=== PATIENT | male | born 1960 | race Caucasian/White ===

== ENCOUNTER 2022-06-12 22:07 | Emergency (ER) | payer SELFPAY ==
[2022-06-12] MEDS ORDERED: LIDOCAINE 1% MPF 30 ML VIAL ONE (23:01)
[2022-06-12] MEDS ORDERED: CEPHALEXIN 250 MG CAP ONE (23:32)
[2022-06-12] MEDS ORDERED: MORPHINE 4 MG/ML SYR ONE (23:32)
[2022-06-12] MEDS ORDERED: IBUPROFEN 400 MG TAB ONE (23:32)
[2022-06-12] MEDS ORDERED: ONDANSETRON 4 MG (ODT) TAB ONE (23:33)
[2022-06-12] MEDS ORDERED: TETANUS & DIPHTHERIA TOX,ADULT 0.5 ML VIAL ONE (23:33)
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
[2022-06-13 00:33] VITALS: TEMP 97.5
[2022-06-13 00:35] VITALS: BP 167/95; O2SAT 94
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
== END 2022-06-13 | disposition home or self-care (01) ==
LOC: ER 22:07
PROC: 0HQFXZZ Repair Right Hand Skin, External Approach (ICD-10-PCS; principal; 2022-06-13)
DX: S61.411A Laceration without foreign body of right hand, initial encounter (principal); W32.0XXA Accidental handgun discharge, initial encounter; Z23 Encounter for immunization
CPT/HCPCS: 90471; 90714; 96372; 99284; J2001; Q0162

== ENCOUNTER 2024-05-31 10:07 | Observation (INO) | payer SELFPAY ==
--- OUTSIDE RECORDS SUMMARY | 2024-05-31 10:14 | XMS REPORT | Continuity of Care Document ---
Author Name Unknown Address [address] [facility] [place] [address] [facility] [place] Address [address] [facility] [place] [address] Care Team Providers Care Senior Occupational Therapist Name Role Phone PCP, PATIENT DOES NOT HAVE A Primary Care Physic boom Unavailable KATHRINE SERNA Attending Clinician Unavailable KATHRINE SERNA Attending Clinician Unavailable MATT SANDERS Attending Clinician Unavailable MATT SANDERS Attending Clinician Unavailable KRISTOPHER HOROWITZ Attending Clinician Unavailable KRISTOPHER HOROWITZ Attending Clinician Unavailable Doctor Unassigned, Estelline Attending Clinician U navailable Pcp, Patient Does Not Have A Attending Clinician Juani Finn LVN Attending Clinician [phone] Deanna Palmer MD Attending Clinician [phone] Juventino King MD Attending Clinician [phone] Anesthesiology Attending Clinician Unavailable KATHRINE SERNA Admitting Clinician Unavailable Payers Payer Name Policy Type Policy Number Effective Date Expirati on Date Source OTHER CI [id number] Problems Condition Name Condition Details Condition Category Status Onset Date Resolution Date Last Treatment Date Treating Clinician Comments Source Closed wedge compressio n fracture of T9 vertebra with routine healing Closed wedge compressio n fracture of T9 vertebra with routine healing Disease Active 07-23 00:00: 00 [facility] Status post thoracic spinal fusion Status post thoracic spinal fusion Disease Active 07-23 00:00: 00 [facility] Chronic alcoholic liver disease Chronic alcoholic liver disease Disease Recurre nce 07-23 00:00: 00 [facility] Trauma Trauma Disease Active 6- 00:00: 00 [facility] Allergies, Adverse Reactions, Alerts Allergy Name Allergy Type Status Severity Reaction(s) Onset Date Inactive Date Treating Clinician Comments Source EGG DRUG INGREDI Active Diarrhea 07-25 00:00: 00 [facility] Egg Propensi ty to adverse reaction s Active Nausea and/or Vomiting 07-25 00:00: 00 [facility] NO KNOWN ALLERGIE S Drug Class Active [facility] Social History Social Habit Start Date Stop Date Quantity Comments Source History SDOH Social Connections Get Together [facility] History SDOH Social Connections [facility] History SDOH Social Connections Membership [facility] History SDOH Social Connections Meetings [facility] Gender identity [facility] History of tobacco use Cigarette Smoker [facility] Alcohol intake 2022-09-08 00:00:00 2022-09-08 00:00:00 Ex-drinker (finding) [facility] Tobacco use and exposure 2022-08-26 00:00:00 2022-08-26 00:00:00 Smokeless tobacco non-user [facility] History SDOH Alcohol Binge 2022-07-18 00:00:00 2022-07-18 00:00:00 5 [facility] History SDOH Social Connections Phone 2022-07-18 00:00:00 2022-07-18 00:00:00 2 [facility] History SDOH Social Connections Living 2022-07-18 00:00:00 2022-07-18 00:00:00 3 [facility] History SDOH Physical Activity DPW 2022-07-18 00:00:00 2022-07-18 00:00:00 0 [facility] History SDOH Physical Activity MPS 2022-07-18 00:00:00 2022-07-18 00:00:00 0 [facility] History SDOH Financial 2022-07-18 00:00:00 2022-07-18 00:00:00 3 [facility] History SDOH Food Worry 2022-07-18 00:00:00 2022-07-18 00:00:00 2 [facility] History SDOH Food Scarcity 2022-07-18 00:00:00 2022-07-18 00:00:00 2 [facility] History SDOH Transport Med 2022-07-18 00:00:00 2022-07-18 00:00:00 2 [facility] History SDOH Transport Non-Med 2022-07-18 00:00:00 2022-07-18 00:00:00 2 [facility] History SDOH Housing Unable to Pay 2022-07-18 00:00:00 2022-07-18 00:00:00 1 [facility] History SDOH Housing Places Lived 2022-07-18 00:00:00 2022-07-18 00:00:00 1 [facility] History SDOH Housing Homeless Last Year 2022-07-18 00:00:00 2022-07-18 00:00:00 2 [facility] History of Social function 2022-07-18 00:00:00 2022-07-18 00:00:00 [facility] History SDOH Alcohol Frequency 2022-07-18 00:00:00 2022-07-18 00:00:00 5 [facility] History SDOH Alcohol Std Drinks 2022-07-18 00:00:00 2022-07-18 00:00:00 5 [facility] Sex Assigned At 1960 00:00:00 1960 00:00:00 [facility] Smoking Status Start Date Stop Date Source Tobacco smoking consumption unknown [facility] Smokes tobacco daily 2022-08-26 00:00:00 [facility] Medications Ordered Medication Name Filled Medication Name Start Date Stop Date Current Medication? Ordering Clinician Indication Dosage Frequency Signature (SIG) Comments Components Source aspirin 81 mg chewable tablet 09-08 00:00: 00 Yes [id number] 81mg Take 1 tablet by mouth in the morning. [facility] metoprolol tartrate 25 mg tablet 09-08 00:00: 00 Yes [id number] 12.5mg Take 0.5 tablets by mouth in the morning and 0.5 tablets in the evening. [facility] hydrOXYzine 50 mg capsule 08-18 00:00: 00 Yes TAKE TWO CAPSULES BY MOUTH EVERY 6 HOURS NEEDED FOR ANXIETY [facility] bromphenira mine-pseudo ephedrine-D M 2-30-10 mg/5 mL syrup 08-18 00:00: 00 Yes TAKE 10 ML BY MOUTH EVERY 4 HOURS NEEDED FOR COUGH [facility] methocarbam oL 500 mg tablet 08-18 00:00: 00 Yes TAKE TWO TABLETS BY MOUTH EVERY 6 HOURS NEEDED FOR PAIN [facility] amLODIPine 10 mg tablet 08-09 00:00: 00 Yes [id number] 10mg Take 1 tablet by mouth in the morning. [facility] lisinopriL 10 mg tablet 08-09 00:00: 00 Yes [id number] 10mg Take 1 tablet by mouth in the morning. [facility] metoprolol tartrate 50 mg tablet 08-09 00:00: 00 09-08 00:00 :00 No [id number] 50mg Take 1 tablet by mouth in the morning and 1 tablet in the evening. [facility] amiodarone 200 mg tablet 08-09 00:00: 00 09-08 00:00 :00 No [id number] 400mg Take 2 tablets by mouth in the morning and 2 tablets in the evening. [facility] thiamine (VITAMIN B1) injection 250 mg 08-04 14:00: 00 08-09 13:59 :00 No 250mg 250 mg, Intramuscu lar, DAILY, 5 doses, First dose on Mon08/04/22 at 0900, Last dose on Mon08/08/22 at 0900, Routine [facility] thiamine 100 mg tablet 08-04 00:00: 00 08-10 04:59 :00 No [id number] 250mg Take 2.5 tablets in the morning for 5 doses. [facility] amiodarone 400 mg tablet 08-03 00:00: 00 08-25 04:59 :00 No [id number] 400mg Take 1 tablet by mouth in the morning for 21 doses. [facility] amLODIPine 10 mg tablet 07-31 00:00: 00 08-31 04:59 :00 No [id number] 10mg Take 1 tablet by mouth in the morning for 30 days. [facility] lisinopriL 10 mg tablet 07-31 00:00: 00 08-31 04:59 :00 No [id number] 10mg Take 1 tablet by mouth in the morning for 30 days. [facility] FENTanyl PF (SUBLIMAZE (PF)) injection 25 mcg 07-30 08:30: 00 07-30 07:39 :00 No 25ug 25 mcg, Slow IV Push, ONCE, 1 dose, On 07/30/22 at 0330, Routine [facility] metoprolol tartrate 50 mg tablet 07-30 00:00: 08-30 04:59 :00 No [id number] 50mg Take 1 tablet by mouth in the morning and 1 tablet in the evening. Do all this for 30 days. [facility] amiodarone 200 mg tablet 07-30 00:00: 00 08-25 04:59 :00 No [id number] 400mg Take 2 tablets by mouth in the morning and 2 tablets in the evening. Do all this for 4 days. Then Take 2 tablets by mouth in the morning for the next 21 days [facility] docusate 100 mg capsule 07-30 00:00: 00 08-14 04:59 :00 No [id number] 100mg Take 1 capsule by mouth in the morning for 14 days. Indication s: opiate pain medication causing severe constipati on [facility] methocarbam oL 500 mg tablet 07-30 00:00: 00 08-14 04:59 :00 No [id number] 500mg Take 1 tablet by mouth 4 (four) times daily for 14 days. Indication s: a uncontroll ed muscle contractio n with pain [facility] thiamine 100 mg tablet 07-30 00:00: 00 08-09 04:59 :00 No [id number] 500mg Take 5 tablets in the morning and 5 tablets at noon and 5 tablets in the evening. Do all this for 4 days. Then take 2.5 tablets in the morning for 5 days. [facility] HYDROcodone -acetaminop hen 5-325 mg tablet 07-30 00:00: 00 08-07 04:59 :00 No [id number] 1{tbl} Take 1 tablet by mouth every 4 (four) hours as needed for Pain (scale 4-6) or Pain (scale 7-10) for up to 7 days. Indication s: acute pain [facility] thiamine (VITAMIN B1) injection 500 mg 07-29 19:00: 00 08-03 18:59 :00 No 500mg 500 mg, Intramuscu lar, TID, 15 doses, First dose on Mon07/29/22 at 1400, Last dose on Mon08/03/22 at 0800, Routine [facility] calcium gluconate 2 g in NaCl 100 mL (ISO-OSM) RTU IV infusion 2 g 07-29 11:30: 00 07-29 11:20 :00 No 2g 2 g, IV Infusion, at 200 mL/hr Administer over 30 Minutes, ONCE, 1 dose, On Mon07/29/22 at 0630, Routine [facility] magnesium sulfate in water 2 gram/50 mL (4 %) infusion 2 g 07-29 11:30: 00 07-29 11:50 :00 No 2g 2 g, IV Piggyback, Administer over 60 Minutes, ONCE, 1 dose, On Mon07/29/22 at 0630, Routine [facility] KCL (KLOR-CON M20) tablet 40 mEq 07-29 11:30: 00 07-29 10:49 :00 No 40meq 40 mEq, Oral, ONCE, 1 dose, On Mon07/29/22 at 0630, Routine [facility] ipratropium -albuteroL (DUONEB) 0.5 mg-3 mg(2.5 mg base)/3 mL nebulizer solution 3 mL 07-28 20:30: 00 Yes 3mL 3 mL, Inhalation , Q6HPRN, Starting on Mon07/28/22 at 1530, Until Discontinu ed, Routine, Wheezing [facility] NaCl 0.9% (NS) injection 5 mL 07-28 14:23: 07 Yes 5mL 5 mL, Slow IV Push, PRN - SEE INSTRUCTIO NS, Starting on Mon07/28/22 at 0923, Until Discontinu ed, 10 mL [facility] lisinopriL (PRINIVIL,Z ESTRIL) tablet 10 mg 07-28 14:00: 00 Yes 10mg 10 mg, Oral, DAILY, First dose on Mon07/28/22 at 0900, Until Discontinu ed, Routine [facility] amiodarone (PACERONE) tablet 400 mg 07-28 01:00: 00 08-04 00:59 :00 No 400mg [Order 1 Start] Name: amiodarone (PACERONE) tablet 400 mg Signed Summary: 400 mg, Oral, BID, 14 doses, First dose on Mon07/27/22 at 2000, Last dose on Mon08/03/22 at 0800, Routine [Order 1 End] [Order 2 Start] Name: amiodarone (PACERONE) tablet 400 mg Signed Summary: 400 mg, Oral, DAILY, 21 doses, First dose on Mon08/03/22 at 1999, Last dose on Mon08/23/22 at 0900, Routine [Order 2 End] [facility] barium sulfate-NO CHARGE- (VARIBAR PUDDING) 40 % (w/v), 30% (w/w) oral paste 30 mL 07-27 16:45: 00 07-27 17:00 :00 No [id number] 30mL 30 mL, Oral, ONCE, 1 dose, On Mon07/27/22 at 1200, Routine [facility] barium sulfate-NO CHARGE- (VARIBAR NECTOR) 40 % (w/v) oral suspension 30 mL 07-27 16:45: 00 07-27 16:45 :00 No [id number] 30mL 30 mL, Oral, ONCE, 1 dose, On Mon07/27/22 at 1200, Routine [facility] barium sulfate (VARIBAR THIN LIQUID) 81 % (w/w) oral powder 30 g 07-27 16:45: 00 07-27 16:45 :00 No [id number] 30g 30 g, Oral, ONCE, 1 dose, On Mon07/27/22 at 1200, Routine [facility] iohexol-NO CHARGE- (OMNIPAQUE 350 BULK) 25 mL 07-27 15:25: 00 07-27 15:25 :00 No [id number] 25mL 25 mL, Oral, ONCE, 1 dose, On Mon07/27/22 at 1045, Routine [facility] iopamidol (ISOVUE 370-500 mL) injection 80 mL 07-27 15:25: 00 07-27 15:25 :00 No [id number] 80mL 80 mL, Intravenou s, ONCE, 1 dose, On Mon07/27/22 at 1045, Routine [facility] KCL (KLOR-CON M20) tablet 20 mEq 07-27 14:00: 00 07-30 13:59 :00 No 20meq 20 mEq, Oral, DAILY, 3 doses, First dose on Mon07/27/22 at 0900, Last dose on Mon07/29/22 at 0900, Routine [facility] acetaminoph en (TYLENOL) tablet 650 mg 07-27 11:19: 22 Yes 650mg 650 mg, Oral, Q4HPRN, Starting on Mon07/27/22 at 0619, Until Discontinu ed, Routine, Temp > 38 C [facility] metoprolol tartrate (LOPRESSOR) tablet 50 mg 07-27 01:00: 00 Yes 50mg 50 mg, Oral, BID, First dose (after last modificati on) on Mon07/26/22 at 2000, Until Discontinu ed, Routine [facility] amiodarone 150 mg/100 mL (NEXTERONE) RTU infusion 150 mg 07-27 00:15: 00 07-27 01:23 :00 No 150mg 150 mg, IV Piggyback, ONCE, 1 dose, On Mon07/26/22 at 1915, Administer over 10 Minutes, 100 mL [facility] famotidine (PEPCID AC) tablet 20 mg 07-26 16:30: 00 Yes 20mg 20 mg, Oral, BID, First dose on Mon07/26/22 at 1130, Until Discontinu ed, Routine [facility] potassium chloride 40 mEq in 100 mL IVPB 07-26 11:15: 00 07-26 15:10 :00 No 40meq 40 mEq, Intravenou s, ONCE, 1 dose, On Mon07/26/22 at 0615, 100 mL [facility] diphenhydrA MINE-maalox 1:1 suspension (COMPOUNDED ) 07-26 08:45: 00 Yes 5mL 5 mL, Oral, PRN, Starting on Mon07/26/22 at 0345, Until Discontinu ed, Routine, Indigestio n [facility] lactulose (CEPHULAC) solution 30 mL 07-26 07:30: 00 07-26 07:33 :00 No 30mL 30 mL, Oral, ONCE, 1 dose, On Mon07/26/22 at 0230, Routine [facility] metoprolol tartrate (LOPRESSOR) tablet 25 mg 07-25 19:00: 00 07-26 18:46 :25 No 25mg 25 mg, Oral, Q8H, First dose (after last modificati on) on Mon07/25/22 at 1400, Until Discontinu ed, Routine [facility] foLIC acid (FOLATE) tablet 1 mg 07-25 14:00: 00 Yes 1mg 1 mg, Oral, DAILY, First dose (after last modificati on) on Mon07/25/22 at 0900, Until Discontinu ed, Routine [facility] docusate (COLACE) 50 mg/5 mL solution 100 mg 07-25 14:00: 00 Yes 100mg 100 mg, Oral, DAILY, First dose (after last modificati on) on Mon07/25/22 at 0900, Until Discontinu ed, Routine [facility] amLODIPine (NORVASC) tablet 10 mg 07-25 14:00: 00 Yes 10mg 10 mg, Oral, DAILY, First dose (after last modificati on) on Mon07/25/22 at 0900, Until Discontinu ed, Routine [facility] thiamine (VITAMIN B1) tablet 100 mg 07-25 14:00: 00 07-28 09:19 :39 No 100mg 100 mg, Oral, DAILY, First dose (after last modificati on) on Mon07/25/22 at 0900, Until Discontinu ed, Routine [facility] potassium chloride 40 mEq in 100 mL IVPB 07-25 12:15: 00 07-25 16:52 :00 No 40meq 40 mEq, Intravenou s, ONCE, 1 dose, On Mon07/25/22 at 0715, 100 mL [facility] heparin (porcine) injection 5,000 Units 07-25 03:00: 00 Yes 5000U 5,000 Units, Subcutaneo us, Q8H, First dose on Mon07/24/22 at 2200, Until Discontinu ed, Routine [facility] sennosides (SENOKOT) tablet 8.6 mg 07-25 01:00: 00 Yes 8.6mg 8.6 mg, Oral, BID, First dose (after last modificati on) on Mon07/24/22 at 2000, Until Discontinu ed, Routine [facility] QUEtiapine (SEROQUEL) tablet 25 mg 07-25 01:00: 00 Yes 25mg 25 mg, Oral, BID, First dose (after last modificati on) on Mon07/24/22 at 2000, Until Discontinu ed, Routine [facility] levETIRAcet am (KEPPRA) tablet 500 mg 07-25 01:00: 00 Yes 500mg 500 mg, Oral, BID, First dose on Mon07/24/22 at 2000, Until Discontinu ed, Routine [facility] proCHLORper azine (COMPAZINE) 10 mg in NaCl 0.9% (NS) piggyback 07-24 21:34: 00 07-24 23:41 :00 No 10mg 10 mg, IV Piggyback, at 100 mL/hr Administer over 30 Minutes, ONCE, 1 dose, On Mon07/24/22 at 1645, Routine [facility] ketorolac (TORADOL) injection 30 mg 07-24 21:34: 00 07-24 23:16 :00 No 30mg 30 mg, Slow IV Push, ONCE, 1 dose, On Mon07/24/22 at 1645, Routine [facility] metoprolol tartrate (LOPRESSOR) tablet 25 mg 07-24 19:00: 00 07-25 13:00 :33 No 25mg 25 mg, Oral, TID, First dose (after last modificati on) on Mon07/24/22 at 1400, Until Discontinu ed, Routine [facility] methocarbam oL (ROBAXIN) tablet 1,000 mg 07-24 17:00: 00 Yes 1000mg 1,000 mg, Oral, QID, First dose on Mon07/24/22 at 1200, Until Discontinu ed, Routine [facility] proMETHazin e (PHENERGAN) 25 mg in NS 50 mL IV piggyback (CNR) 07-24 15:41: 10 Yes 25mg 25 mg, IV Piggyback, at 200 mL/hr Administer over 15 Minutes, Q4HPRN, Starting on Mon07/24/22 at 1041, Until Discontinu ed, Routine, N/V unresponsi ve to Ondansetro n [facility] oxyCODONE immediate release tablet 5 mg 07-24 15:40: 44 07-27 11:19 :20 No 5mg 5 mg, Oral, Q6HPRN, Starting on 07/24/22 at 1040, Until Mon07/27/22 at 0619, Routine, Pain (scale 7-10)
F aculty member approving Restricted medication : KATHRINE SERNA [facility] guaiFENesin 100 mg/5 mL solution 100 mg 07-24 15:40: 32 Yes 100mg 100 mg, Oral, Q4HPRN, Starting on Mon07/24/22 at 1040, Until Discontinu ed, Routine, Cough [facility] perflutren protein-A microsphr (OPTISON) injection 3 mL 07-24 15:15: 00 07-24 14:49 :00 No [id number] 3mL 3 mL, IV Push, ONCE, 1 dose, On Mon07/24/22 at 1015, Routine [facility] metoprolol tartrate (LOPRESSOR) tablet 25 mg 07-24 14:30: 00 07-24 15:43 :46 No 25mg 25 mg, Enteral, TID, First dose on Mon07/24/22 at 0930, Until Discontinu ed, Routine [facility] magnesium oxide (MAG-OX 400) tablet 400 mg 07-24 14:00: 00 Yes 400mg 400 mg, Oral, DAILY, First dose on Mon07/24/22 at 0900, Until Discontinu ed, Routine [facility] KCL (KLOR-CON M10) tablet 30 mEq 07-24 12:00: 00 07-24 13:06 :00 No 30meq 30 mEq, Oral, ONCE, 1 dose, On Mon07/24/22 at 0700, Routine [facility] diltiazem (CARDIZEM IV) 125 mg in D5W infusion 07-24 04:00: 25 07-26 19:33 :26 No 2.5mg/h 2.5-15 mg/hr (2.5-15 mL/hr), IV Infusion, TITRATE, afib rate control, Starting on 07/23/22 at 2300
In itiate infusion at 2.5 mg/hr. Titrate by 2.5 mg/hr every 5 minutes to 15 minutes as needed to achieve and maintain goal heart rate. Maximum dose = 15 mg/hr. If goal not maintained at maximum allowed dose, contact prescriber . Please keep rate greater than 60 and less than 140
[facility] acetaminoph en (TYLENOL) tablet 500 mg 07-24 03:21: 49 07-27 11:19 :30 No 500mg 500 mg, Oral, Q4HPRN, Starting on Mon07/23/22 at 2221, Until Mon07/27/22 at 0619, Routine, Temp > 38 C [facility] diltiazem (CARDIZEM IV) 125 mg in D5W infusion 07-24 01:08: 57 07-24 04:02 :34 No 2.5mg/h 2.5-15 mg/hr (2.5-15 mL/hr), IV Infusion, TITRATE, afib rate control, Starting on Mon07/23/22 at 2007
In itiate infusion at 2.5 mg/hr. Titrate by 2.5 mg/hr every 5 minutes to 15 minutes as needed to achieve and maintain goal heart rate. Maximum dose = 15 mg/hr. If goal not maintained at maximum allowed dose, contact prescriber .
[facility] potassium chloride 40 mEq in 100 mL IVPB 07-24 01:00: 00 07-24 05:02 :00 No 40meq 40 mEq, Intravenou s, ONCE, 1 dose, On Mon07/23/22 at 1999, 100 mL [facility] diltiazem (CARDIZEM IV) injection 17 mg 07-24 01:00: 00 07-24 01:45 :00 No .2mg/kg 17 mg (0.2 mg/kg ?85 kg), Slow IV Push, ONCE, 1 dose, On [facility] 07/23/22 at 1999, Routine
honest john [employer] member approving Restricted medication : RAYSHAWN SPENCER [facility] metoprolol (LOPRESSOR) injection 5 mg 07-24 00:14: 15 Yes 5mg 5 mg, Intravenou s, Q15MIN PRN, Starting on 07/23/22 at 1914, Until Discontinu ed, Routine, for hr >140 [facility] amiodarone 150 mg/100 mL (NEXTERONE) RTU infusion 150 mg 07-23 20:45: 00 07-23 20:55 :00 No 150mg 150 mg, IV Piggyback, ONCE, 1 dose, On 07/23/22 at 1545, Administer over 10 Minutes, 100 mL [facility] niCARdipine (CARDENE I.V.) 40 mg in NaCL 200 mL (RTU) infusion 07-23 16:43: 09 07-26 19:33 :26 No 2.5mg/h 2.5-15 mg/hr (12.5-75 mL/hr), IV Infusion, TITRATE, Goal SBP <160mmHg, Starting on 07/23/22 at 1143
In itiate infusion at 2.5 mg/hr.&nbs p; Ti trate by 2.5 mg/hr every 5 minutes to 15 minutes as needed to achieve and maintain goal blood pressure. Maximum dose = 15 mg/hr. If goal not maintained at maximum allowed dose, contact prescriber .
[facility] thiamine (VITAMIN B1) tablet 100 mg 07-23 14:00: 00 07-24 15:43 :46 No 100mg 100 mg, Enteral, DAILY, First dose (after last modificati on) on [facility] 07/23/22 at 0900, Until Discontinu ed, Routine [facility] foLIC acid (FOLATE) tablet 1 mg 07-23 14:00: 00 07-24 15:43 :46 No 1mg 1 mg, Enteral, DAILY, First dose (after last modificati on) on 07/23/22 at 0900, Until Discontinu ed, Routine [facility] amLODIPine (NORVASC) tablet 10 mg 07-23 14:00: 00 07-24 15:43 :46 No 10mg 10 mg, Enteral, DAILY, First dose (after last modificati on) on 07/23/22 at 0900, Until Discontinu ed, Routine [facility] docusate (COLACE) 50 mg/5 mL solution 100 mg 07-23 14:00: 00 07-24 15:43 :46 No 100mg 100 mg, Enteral, DAILY, First dose on 07/23/22 at 0900, Until Discontinu ed, Routine [facility] sennosides (SENOKOT) tablet 8.6 mg 07-23 13:00: 00 07-24 15:43 :46 No 8.6mg 8.6 mg, Enteral, BID, First dose (after last modificati on) on 07/23/22 at 0800, Until Discontinu ed, Routine [facility] QUEtiapine (SEROQUEL) tablet 25 mg 07-23 13:00: 00 07-24 15:43 :46 No 25mg 25 mg, Enteral, BID, First dose (after last modificati on) on 07/23/22 at 0800, Until Discontinu ed, Routine [facility] guaiFENesin 100 mg/5 mL solution 100 mg 07-23 02:44: 03 07-24 15:43 :46 No 100mg 100 mg, Enteral, Q4HPRN, Starting on Mon07/22/22 at 2144, Until 07/24/22 at 1043, Routine, Cough [facility] oxyCODONE immediate release tablet 5 mg 07-23 02:43: 51 07-24 15:43 :46 No 5mg 5 mg, Enteral, Q6HPRN, Starting on Mon07/22/22 at 2143, Until 07/24/22 at 1043, Routine, Pain (scale 7-10)
F aculty member approving Restricted medication : KATHRINE SERNA [facility] acetaminoph en ADULT (OFIRMEV) injection 1,000 mg 07-22 23:15: 00 07-23 18:59 :00 No 1000mg 1,000 mg, IV Infusion, at 400 mL/hr Administer over 15 Minutes, Q8H, 3 doses, First dose (after last reorder) on Mon07/22/22 at 1815, Last dose on Mon07/23/22 at 0600, Routine
Indicatio n: Perioperat klaudia Patient [facility] sodium chloride 7% (HYPER-SARKIS) nebulizer solution 4 mL 07-22 14:00: 00 Yes 4mL 4 mL, Inhalation , DAILY, First dose on Mon07/22/22 at 0900, Until Discontinu ed, Routine [facility] potassium chloride 40 mEq in 100 mL IVPB 07-22 12:00: 00 07-22 17:28 :00 No 40meq 40 mEq, Intravenou s, ONCE, 1 dose, On Mon07/22/22 at 0700, 100 mL [facility] heparin (porcine) injection 5,000 Units 07-22 03:00: 00 Yes 5000U 5,000 Units, Subcutaneo us, Q8H, First dose on Mon07/21/22 at 2200, Until Discontinu ed, Routine [facility] ipratropium -albuteroL (DUONEB) 0.5 mg-3 mg(2.5 mg base)/3 mL nebulizer solution 3 mL 07-22 01:00: 00 Yes 3mL 3 mL, Inhalation , QID, First dose on Mon07/21/22 at 2000, Until Discontinu ed, Routine [facility] methocarbam oL (ROBAXIN) injection 1,000 mg 07-21 19:00: 00 Yes 1000mg 1,000 mg, Intravenou s, Q8H, First dose on Mon07/21/22 at 1400, Until Discontinu ed, Routine [facility] acetaminoph en ADULT (OFIRMEV) injection 1,000 mg 07-21 19:00: 00 07-22 18:59 :00 No 1000mg 1,000 mg, IV Infusion, at 400 mL/hr Administer over 15 Minutes, Q8H, 3 doses, First dose on Mon07/21/22 at 1400, Last dose on Mon07/22/22 at 0600, Routine
Indicatio n: Perioperat klaudia Patient [facility] vancomycin (VANCOCIN) injection 07-21 18:55: 00 Yes PRN, Starting on Mon07/21/22 at 1355, Until Discontinu ed, VICTORIANO, Intra-op [facility] thrombin topical solution 07-21 18:54: 00 Yes PRN, Starting on Mon07/21/22 at 1354, Until Discontinu ed, Routine, Intra-op [facility] morpHINE (4 mg/mL) injection 4 mg 07-21 18:52: 08 Yes 4mg 4 mg, Slow IV Push, Q4HPRN, Starting on Mon07/21/22 at 1352, Until Discontinu ed, Routine, breakthrou gh pain scale 4-10 [facility] oxyCODONE immediate release tablet 5 mg 07-21 18:51: 53 Yes 5mg 5 mg, Oral, Q6HPRN, Starting on Mon07/21/22 at 1351, Until Discontinu ed, Routine, Pain (scale 7-10)
F aculty member approving Restricted medication : KATHRINE SERNA [facility] lidocaine-e pinephrine (XYLOCAINE WITH EPINEPHRINE ) 0.5 %-1:200,000 injection 07-21 14:25: 00 Yes PRN, Starting on Mon07/21/22 at 0925, Until Discontinu ed, Routine, Intra-op [facility] calcium gluconate 2 g in NaCl 100 mL (ISO-OSM) RTU IV infusion 2 g 07-21 11:30: 00 07-21 11:28 :00 No 2g 2 g, IV Infusion, at 200 mL/hr Administer over 30 Minutes, ONCE, 1 dose, On Mon07/21/22 at 0630, Routine [facility] potassium chloride 40 mEq in 100 mL IVPB 07-21 11:00: 00 07-21 14:54 :00 No 40meq 40 mEq, Intravenou s, ONCE, 1 dose, On Mon07/21/22 at 0600, 100 mL [facility] nicotine (NICODERM) 21 mg/24 hr patch 1 Patch 07-20 17:00: 00 Yes 1{patch } 1 Patch, Topical, Administer over 24 Hours, Q24H, First dose on Mon07/20/22 at 1200, Until Discontinu ed, Routine [facility] guaiFENesin 100 mg/5 mL solution 100 mg 07-20 15:56: 32 07-23 02:44 :13 No 100mg 100 mg, Oral, Q4HPRN, Starting on Mon07/20/22 at 1056, Until Mon07/22/22 at 2144, Routine, Cough [facility] magnesium sulfate in water 2 gram/50 mL (4 %) infusion 2 g 07-20 11:45: 00 07-20 12:23 :00 No 2g 2 g, IV Piggyback, Administer over 60 Minutes, ONCE, 1 dose, On Mon07/20/22 at 0645, Routine [facility] heparin (porcine) injection 5,000 Units 07-20 11:00: 00 Yes 5000U 5,000 Units, Subcutaneo us, Q8H, First dose on Mon07/20/22 at 0600, Until Discontinu ed, Routine [facility] potassium chloride 40 mEq in 100 mL IVPB 07-20 09:00: 00 07-20 17:00 :00 No 40meq 40 mEq, Intravenou s, Q2H, 2 doses, First dose on Mon07/20/22 at 0400, Last dose on Mon07/20/22 at 0600, 100 mL [facility] sodium chloride 2 % HYPERTONIC infusion 500 mL 07-19 20:30: 00 07-20 02:15 :09 No 500mL 500 mL, at 30 mL/hr, IV Infusion, CONTINUOUS , Starting on Mon07/19/22 at 1530, Until Mon07/19/22 at 2115 [facility] amLODIPine (NORVASC) tablet 10 mg 07-19 18:00: 00 07-23 02:43 :34 No 10mg 10 mg, Oral, DAILY, First dose on Mon07/19/22 at 1300, Until Discontinu ed, Routine [facility] sodium chloride 2 % HYPERTONIC infusion 500 mL 07-19 17:15: 00 07-19 20:20 :16 No 500mL 500 mL, at 50 mL/hr, IV Infusion, CONTINUOUS , Starting on Mon07/19/22 at 1215, Until Mon07/19/22 at 1520 [facility] dexMEDEtomi dine 400 mcg in 0.9 % NaCl 100 mL (PRECEDEX) RTU IV infusion 07-19 16:37: 17 07-26 19:33 :26 No .2ug/kg /h 0.2-1.5 mcg/kg/hr ?85 kg (4.25-31.8 75 mL/hr, rounded to 4.25-31.88 mL/hr), IV Infusion, TITRATE, Sedation-R ASS score (0 to -1), Starting on Mon07/19/22 at 1137
In itiate infusion at 0.2 mcg/kg/hr and titrate by 0.1 mcg/kg/hr every 30 minutes to goal sedation score. Maximum dose = 1.5 mcg/kg/hr. If goal not maintained at maximum allowed dose, contact prescriber .
[facility] sodium chloride 2 % HYPERTONIC infusion 07-19 11:30: 00 07-19 15:37 :29 No 500mL 500 mL, at 40 mL/hr, IV Infusion, CONTINUOUS , Starting on Mon07/19/22 at 0630, Until Mon07/19/22 at 1037 [facility] NaCl 0.9% (NS) IV infusion 1,000 mL 07-19 00:45: 00 07-29 16:15 :37 No 1000mL at 42 mL/hr, IV Infusion, CONTINUOUS , Starting on 07/18/22 at 1945, Until Mon07/29/22 at 1115, Routine [facility] sodium chloride 2 % HYPERTONIC infusion 07-19 00:45: 00 07-19 11:18 :58 No 500mL 500 mL, at 35 mL/hr, IV Infusion, CONTINUOUS , Starting on Mon07/18/22 at 1945, Until Mon07/19/22 at 0618 [facility] docusate (COLACE) capsule 100 mg 07-18 14:00: 00 Yes 100mg 100 mg, Oral, DAILY, First dose on Mon07/18/22 at 0900, Until Discontinu ed, Routine [facility] ciprofloxac in-fluocino lone (OTOVEL) 0.3-0.025 % (0.25 mL) otic solution 0.25 mL 07-18 13:00: 00 07-23 12:59 :00 No .25mL 0.25 mL, Left Ear, BID, 10 doses, First dose (after last modificati on) on Mon07/18/22 at 0800, Last dose on Mon07/22/22 at 2000, Routine [facility] QUEtiapine (SEROQUEL) tablet 25 mg 07-18 07:15: 00 07-23 02:43 :34 No 25mg 25 mg, Oral, BID, First dose on Mon07/18/22 at 0215, Until Discontinu ed, Routine [facility] lidocaine 1% (PF) (XYLOCAINE) injection 5 mL 07-18 06:15: 00 07-18 19:00 :00 No 5mL 5 mL, Subcutaneo us, ONCE, 1 dose, On Mon07/18/22 at 0115, Routine [facility] NaCl 0.9% (NS) injection 10 mL 07-18 06:11: 38 Yes 10mL 10 mL, Slow IV Push, PRN, Starting on Mon07/18/22 at 0111, Until Discontinu ed, Routine, line maintenanc e [facility] metoprolol (LOPRESSOR) injection 5 mg 07-18 04:56: 15 Yes 5mg 5 mg, Intravenou s, Q15MIN PRN, Starting on Mon07/17/22 at 2356, Until Discontinu ed, Routine, Pulse >140 [facility] NaCl 0.9% (NS) IV infusion 1,000 mL 07-18 00:30: 00 07-19 00:37 :25 No 1000mL at 50 mL/hr, IV Infusion, CONTINUOUS , Starting on Mon07/17/22 at 1930, Until 07/18/22 at 1937, Routine [facility] sodium chloride 2 % HYPERTONIC infusion 07-17 18:30: 00 07-19 00:37 :07 No 500mL 500 mL, at 30 mL/hr, IV Infusion, CONTINUOUS , Starting on Mon07/17/22 at 1330, Until 07/18/22 at 1937 [facility] dexMEDEtomi dine 200 mcg in 0.9 % NaCl 50 mL (PRECEDEX) RTU IV infusion 07-17 18:24: 15 07-19 15:37 :29 No .2ug/kg /h 0.2-1.5 mcg/kg/hr ?85 kg (4.25-31.8 75 mL/hr, rounded to 4.25-31.88 mL/hr), IV Infusion, TITRATE, Sedation-R ASS score (0 to -1), Starting on Mon07/17/22 at 1324
In itiate infusion at 0.2 mcg/kg/hr and titrate by 0.1 mcg/kg/hr every 30 minutes to goal sedation score. Maximum dose = 1.5 mcg/kg/hr. If goal not maintained at maximum allowed dose, contact prescriber .
[facility] sennosides (SENOKOT) tablet 8.6 mg 07-17 17:30: 00 Yes 8.6mg 8.6 mg, Oral, BID, First dose on Mon07/17/22 at 1230, Until Discontinu ed, Routine [facility] hydralAZINE (APRESOLINE ) injection 10 mg 07-17 17:29: 27 Yes 10mg 10 mg, Slow IV Push, Q6HPRN, Starting on Mon07/17/22 at 1229, Until Discontinu ed, Routine, SBP>140 [facility] labetaloL (NORMODYNE) injection 10 mg 07-17 17:29: 14 Yes 10mg 10 mg, Slow IV Push, [id number], Starting on Mon07/17/22 at 1229, Until Discontinu ed, Routine, SBP>140 [facility] LORazepam (ATIVAN) injection 1 mg 07-17 16:55: 41 07-18 07:00 :00 No 1mg 1 mg, Slow IV Push, Q4HPRN, 2 doses, Starting on Mon07/17/22 at 1155, Until Mon07/18/22 at 0200, Routine, Agitation, Agitation if PRN serax inadequate [facility] foLIC acid (FOLATE) tablet 1 mg 07-17 14:00: 00 Yes 1mg 1 mg, Oral, DAILY, First dose on Mon07/17/22 at 0900, Until Discontinu ed, Routine [facility] thiamine (VITAMIN B1) tablet 100 mg 07-17 14:00: 00 Yes 100mg 100 mg, Oral, DAILY, First dose on Mon07/17/22 at 0900, Until Discontinu ed, Routine [facility] ciprofloxac in-fluocino lone (OTOVEL) 0.3-0.025 % (0.25 mL) otic solution 0.25 mL 07-17 14:00: 00 07-18 06:09 :02 No .25mL 0.25 mL, Left Ear, BID, First dose on Mon07/17/22 at 0900, Until Discontinu ed, Routine [facility] magnesium sulfate in water 2 gram/50 mL (4 %) infusion 2 g 07-17 10:30: 00 07-17 11:57 :00 No 2g 2 g, IV Piggyback, Administer over 60 Minutes, ONCE, 1 dose, On Mon07/17/22 at 0530, VICTORIANO [facility] niCARdipine (CARDENE I.V.) 40 mg in NaCL 200 mL (RTU) infusion 07-17 07:46: 27 Yes 2.5mg/h 2.5-15 mg/hr (12.5-75 mL/hr), IV Infusion, TITRATE, Goal SBP <140mmHg, Starting on Mon07/17/22 at 0246
In itiate infusion at 2.5 mg/hr.&nbs p; Ti trate by 2.5 mg/hr every 5 minutes to 15 minutes as needed to achieve and maintain goal blood pressure. Maximum dose = 15 mg/hr. If goal not maintained at maximum allowed dose, contact prescriber .
[facility] ceFAZolin (ANCEF) 1,000 mg in NaCl 0.9% (NS) 100 mL MINI-BAG 07-17 07:45: 00 07-17 23:13 :00 No 1000mg 1,000 mg, Intravenou s, Q8H ABX, 3 doses, First dose on Mon07/17/22 at 0245, Last dose on Mon07/17/22 at 1845, Administer over 30 Minutes, 100 mL
Reas on for Anti-Infec tive: Empiric Non-Surgic al Prophylaxi s
Durat ion of therapy: 72 hours [facility] proMETHazin e (PHENERGAN) tablet 25 mg 07-17 07:28: 22 Yes 25mg 25 mg, Oral, Q4HPRN, Starting on Mon07/17/22 at 0228, Until Discontinu ed, Routine, N/V unresponsi ve to Ondansetro n [facility] ciprofloxac in-fluocino lone (OTOVEL) 0.3-0.025 % (0.25 mL) otic solution 0.25 mL 07-17 06:45: 00 07-18 06:08 :18 No .25mL 0.25 mL, Left Ear, BID, First dose on Mon07/17/22 at 0145, Until Discontinu ed, Routine [facility] oxazepam (SERAX) capsule 15 mg 07-17 06:38: 54 Yes 15mg 15 mg, Oral, Q4HPRN, Starting on Mon07/17/22 at 0138, Until Discontinu ed, Routine, Only while awake for DBP equal to or greater than 100, HR equal to or greater than 100. [facility] hydralAZINE (APRESOLINE ) injection 5 mg 07-17 06:30: 00 07-17 06:41 :00 No 5mg 5 mg, Slow IV Push, ONCE, 1 dose, On 07/17/22 at 0130, STAT [facility] levETIRAcet am (KEPPRA) in NACL (ISO-OS) 500 mg/100 mL RTU 07-17 05:00: 00 Yes 500mg 500 mg, IV Piggyback, Q12H, First dose on 07/17/22 at 0000, Until Discontinu ed, Administer over 15 Minutes, 100 mL [facility] lidocaine-e pinephrine (XYLOCAINE WITH EPINEPHRINE ) 1 %-1:100,000 injection 10 mL 07-17 04:45: 00 07-17 06:00 :00 No 10mL 10 mL, Intraderma l, ONCE, 1 dose, On 07/16/22 at 2345, Routine [facility] pantoprazol e (PROTONIX) injection 40 mg 07-17 04:00: 00 07-19 05:23 :00 No 40mg 40 mg, Slow IV Push, Q24H, 3 doses, First dose on 07/16/22 at 2300, Last dose on 07/18/22 at 2300 [facility] acetaminoph en ADULT (OFIRMEV) injection 1,000 mg 07-17 04:00: 00 07-17 20:56 :00 No 1000mg 1,000 mg, IV Infusion, at 400 mL/hr Administer over 15 Minutes, Q8H, 3 doses, First dose on 07/16/22 at 2300, Last dose on 07/17/22 at 1400, Routine
Indicatio n: Perioperat klaudia Patient [facility] lactated ringers IV infusion 1,000 mL 07-17 04:00: 00 07-17 23:24 :02 No 1000mL at 50 mL/hr, 1,000 mL, IV Infusion, CONTINUOUS , Starting on 6/3/23 at 2300, Until 07/17/22 at 1824, Routine [facility] traMADoL (ULTRAM) tablet 50 mg 07-17 03:47: 46 07-21 18:54 :21 No 50mg 50 mg, Oral, Q6HPRN, Starting on 07/16/22 at 2247, Until Leah 07/21/22 at 1354, Routine, Pain (scale 4-6), Pain (scale 7-10) [facility] ondansetron (ZOFRAN (PF)) injection 4 mg 07-17 03:47: 37 Yes 4mg 4 mg, Slow IV Push, Q6HPRN, Nausea and Vomiting (N/V), Starting on 07/16/22 at 2247
Do ses of ondansetro n 16 mg and above need to be administer ed via IV piggyback. For Dose >=24mg ECG monitoring is advisable.
[facility] ondansetron (ZOFRAN (PF)) injection 4 mg 07-17 03:30: 00 07-17 03:24 :00 No 4mg 4 mg, Slow IV Push, ONCE, 1 dose, On 07/16/22 at 2230, VICTORIANO [facility] iopamidol (ISOVUE 370-500 mL) injection 100 mL 07-17 02:16: 00 07-17 02:30 :00 No [id number] 100mL 100 mL, Intravenou s, ONCE, 1 dose, On 07/16/22 at 2130, Routine [facility] Immunizations Ordered Immunization Name Filled Immunization Name Date Status Comments Source TD Pres-Free 2022-07-16 00:00:00 Completed [facility] TD Pres-Free 2022-07-16 00:00:00 Completed [facility] TD Pres-Free 2022-07-16 00:00:00 Completed [facility] TD Pres-Free 2022-07-16 00:00:00 Completed [facility] TD Pres-Free 2022-07-16 00:00:00 Completed [facility] TD Pres-Free 2022-07-16 00:00:00 Completed [facility] TD Pres-Free 2022-07-16 00:00:00 Completed [facility] TD Pres-Free 2022-07-16 00:00:00 Completed [facility] TD Pres-Free 2022-07-16 00:00:00 Completed [facility] TD Pres-Free 2022-07-16 00:00:00 Completed [facility] TD Pres-Free 2022-07-16 00:00:00 Completed [facility] TD Pres-Free Unknown Completed [facility] Vital Signs Vital Name Observation Time Observation Value Comments S ource Systolic blood pressure 2022-09-08 14:31:00 146 mm[Hg] [facility] Diastolic blood pressure 2022-09-08 14:31:00 75 mm[Hg] [facility] Heart rate 2022-09-08 14:22:00 67 /min [facility] Body temperature 2022-09-08 14:22:00 36.56 Bernie [facility] Respiratory rate 2022-09-08 14:22:00 16 /min [facility] Body height 2022-09-08 14:22:00 182.9 cm [facility] Body weight 2022-09-08 14:22:00 80.015 kg [facility] BMI 2022-09-08 14:22:00 23.92 kg/m2 [facility] Oxygen saturation in Arterial blood by Pulse oximetry 2022-09-08 14:22:00 99 /min [facility] Systolic blood pressure 2022-08-26 15:48:00 147 mm[Hg] [facility] Diastolic blood pressure 2022-08-26 15:48:00 76 mm[Hg] [facility] Heart rate 2022-08-26 15:48:00 67 /min [facility] Body temperature 2022-08-26 15:48:00 36.44 Bernie [facility] Respiratory rate 2022-08-26 15:48:00 20 /min [facility] Body height 2022-08-26 15:48:00 182.9 cm [facility] Body weight 2022-08-26 15:48:00 80.513 kg [facility] BMI 2022-08-26 15:48:00 24.07 kg/m2 [facility] Oxygen saturation in Arterial blood by Pulse oximetry 2022-08-26 15:48:00 98 /min [facility] Systolic blood pressure 2022-07-30 17:01:00 147 mm[Hg] [facility] Diastolic blood pressure 2022-07-30 17:01:00 76 mm[Hg] [facility] Heart rate 2022-07-30 17:01:00 73 /min Unive [facility] Body temperature 2022-07-30 17:01:00 36.78 Bernie [facility] Respiratory rate 2022-07-30 17:01:00 20 /min [facility] Oxygen saturation in Arterial blood by Pulse oximetry 2022-07-30 17:01:00 98 /min [facility] Body height 2022-07-17 05:39:00 182.9 cm [facility] Body weight 2022-07-17 05:39:00 84.959 kg [facility] BMI 2022-07-17 05:39:00 25.40 kg/m2 [facility] Systolic blood pressure 2022-07-21 12:00:00 143 mm[Hg] [facility] Diastolic blood pressure 2022-07-21 12:00:00 92 mm[Hg] [facility] Heart rate 2022-07-21 12:00:00 95 /min Unive [facility] Respiratory rate 2022-07-21 12:00:00 21 /min [facility] Oxygen saturation in Arterial blood by Pulse oximetry 2022-07-21 12:00:00 88 /min [facility] Body temperature 2022-07-21 09:00:00 36.5 Bernie [facility] Body height 2022-07-17 05:39:00 182.9 cm [facility] Body weight 2022-07-17 05:39:00 84.959 kg [facility] BMI 2022-07-17 05:39:00 25.40 kg/m2 [facility] Heart rate 2022-07-19 13:00:00 77 /min [facility] Body temperature 2022-07-19 13:00:00 36.22 Bernie [facility] Respiratory rate 2022-07-19 13:00:00 14 /min [facility] Oxygen saturation in Arterial blood by Pulse oximetry 2022-07-19 13:00:00 96 /min [facility] Systolic blood pressure 2022-07-19 12:00:00 175 mm[Hg] [facility] Diastolic blood pressure 2022-07-19 12:00:00 103 mm[Hg] [facility] Body height 2022-07-17 05:39:00 182.9 cm [facility] Body weight 2022-07-17 05:39:00 84.959 kg [facility] BMI 2022-07-17 05:39:00 25.40 kg/m2 [facility] Procedures Procedure Date / Time Performed Performing Clinician Source CONSENT/REFUSAL FOR DIAGNOSIS AND TREATMENT 2022-08-26 15:36:07 Doctor Unassigned, [place] [facility] PHOSPHORUS 2022-07-30 10:03:00 Leonidas Mejia [facility] MAGNESIUM 2022-07-30 10:03:00 Leonidas Mejia [facility] BASIC METABOLIC PANEL (NA, K, CL, CO2, GLUCOSE, BUN, CREATININE, CA) 2022-07-30 10:03:00 Evgeny Mejia [facility] CBC WITH DIFF 2022-07-30 10:03:00 Leonidas Mejia [facility] HB ECG ROUTINE & RHYTHM STRIP 2022-07-29 13:14:46 Kathrine Serna [facility] CBC WITH DIFF 2022-07-29 10:02:00 Leonidas Mejia [facility] PHOSPHORUS 2022-07-29 09:39:00 Leonidas Mejia [facility] MAGNESIUM 2022-07-29 09:39:00 Leonidas Mejia [facility] BASIC METABOLIC PANEL (NA, K, CL, CO2, GLUCOSE, BUN, CREATININE, CA) 2022-07-29 09:39:00 Evgeny Mejia [facility] CT HEAD WO CONTRAST 2022-07-28 16:00:14 Danny Wells [facility] URINALYSIS 2022-07-28 15:15:00 Danny Wells [facility] URINE CULTURE 2022-07-28 15:15:00 [facility] TROPONIN I 2022-07-28 14:33:00 Kathrine Serna [facility] BASIC METABOLIC PANEL (NA, K, CL, CO2, GLUCOSE, BUN, CREATININE, CA) 2022-07-28 14:33:00 Kathrine Serna [facility] CBC WITHOUT DIFF 2022-07-28 14:33:00 Kathrine Serna [facility] PROTHROMBIN TIME / INR 2022-07-28 14:33:00 Abigail Serna [facility] ACTIVATED PARTIAL THRMPLAS JESSICA 2022-07-28 14:33:00 Kathrine Serna [facility] POCT GLUCOSE (AUTOMATED) 2022-07-28 14:24:00 Kathrine Serna [facility] MAGNESIUM 2022-07-28 08:33:00 Leonidas Mejia [facility] BASIC METABOLIC PANEL (NA, K, CL, CO2, GLUCOSE, BUN, CREATININE, CA) 2022-07-28 08:33:00 Evgeny Mejia [facility] CT ABDOMEN PELVIS W CONTRAST 2022-07-27 15:31:41 Beto Huang [facility] XR CHEST 1 VW 2022-07-26 09:15:00 Leonidas Mejia [facility] XR KUB 2022-07-26 09:15:00 Leonidas Mejia [facility] MAGNESIUM 2022-07-26 08:02:00 Leonidas Mejia [facility] BASIC METABOLIC PANEL (NA, K, CL, CO2, GLUCOSE, BUN, CREATININE, CA) 2022-07-26 08:02:00 Evgeny Mejia [facility] CBC WITH DIFF 2022-07-26 08:02:00 Leonidas Mejia [facility] PROTHROMBIN TIME / INR 2022-07-26 08:02:00 Evgeny Arce [employer] [facility] ACTIVATED PARTIAL THRMPLAS JESSICA 2022-07-26 08:02[facility]00 [facility] 2022-07-26 08:02:00 Leonidas Mejia [facility] URINALYSIS 2022-07-25 19:48:[address] [facility] 2022-07-25 17:09:00 Shannon Wells [facility] BLOOD CULTURE SCREEN 2022-07-25 17:07:00 Shannon Wells [facility] HB ECG ROUTINE & RHYTHM STRIP 2022-07-25 13:50:28 Beto Huang [facility] MAGNESIUM 2022-07-25 09:06:00 [facility]OLIC PANEL (NA, K, CL, CO2, GLUCOSE, BUN, CREATININE, CA) 2022-07-25 09:06:00 Evgeny Mejia [facility] CBC WITH DIFF 2022-07-25 09:06:00 Leonidas Mejia [facility] CT HEAD WO CONTRAST 2022-07-24 20:36:00 Luca Lomeli [facility] TROPONIN I 2022-07-24 15:17:00 [facility]ORMONE 2022-07-24 15:17:00 Jacoby Reese [facility] N-TERMINAL PRO-BNP 2022-07-24 15:17:00 Elizabeth Reese [facility] TRANSTHORACIC ECHO (TTE) COMPLETE W/ CONTRAST 2022-07-24 14:53:00 Favian Townsend [facility] HB ECG ROUTINE & RHYTHM STRIP 2022-07-24 13:50:18 Susan Grossman [facility] MAGNESIUM 2022-07-24 08:51:00 Susan Grossman [facility] BASIC METABOLIC PANEL (NA, K, CL, CO2, GLUCOSE, BUN, CREATININE, CA) 2022-07-24 08:51:00 Susan Grossman [facility] CBC WITHOUT DIFF 2022-07-24 08:51:00 Susan Grossman [facility] BASIC METABOLIC PANEL (NA, K, CL, CO2, GLUCOSE, BUN, CREATININE, CA) 2022-07-23 20:46:00 Susan Grossman [facility] CBC WITH DIFF 2022-07-23 20:46:00 Susan Grossman [facility] PROTHROMBIN TIME / INR 2022-07-23 20:46:00 rTacy Grossman [facility] ACTIVATED PARTIAL THRMPLAS JESSICA 2022-07-23 20:46:00 Susan Grossman [facility] EKG-12 LEAD 2022-07-23 19:44:52 Rayshawn Spencer [facility] XR ABDOMEN 1 VW 2022-07-23 13:03:00 Beto Huang [facility] MAGNESIUM 2022-07-23 10:15:00 Beto Huang [facility] BASIC METABOLIC PANEL (NA, K, CL, CO2, GLUCOSE, BUN, CREATININE, CA) 2022-07-23 10:15:00 Beto Huang [facility] CBC WITH DIFF 2022-07-23 10:15:00 Beto Huang [facility] POCT GLUCOSE (AUTOMATED) 2022-07-22 19:06:00 Juventino King [facility] POCT GLUCOSE (AUTOMATED) 2022-07-22 19:06:00 Juventino King [facility] [facility] MAGNESIUM 2022-07-22 08:57:00 Susan Grossman [facility] BASIC METABOLIC PANEL (NA, K, CL, CO2, GLUCOSE, BUN, CREATININE, CA) 2022-07-22 08:57:00 Susan Grossman [facility] CBC WITH DIFF 2022-07-22 08:57:00 Carole Zendejas [facility] MAGNESIUM 2022-07-22 08:57:00 Susan Grossman [facility] BASIC METABOLIC PANEL (NA, K, CL, CO2, GLUCOSE, BUN, CREATININE, CA) 2022-07-22 08:57:00 Susan Grossman [facility] CBC WITH DIFF 2022-07-22 08:57:00 Carole Zendejas [facility] FL TIME OR (NON-REPORTABLE) 2022-07-21 18:06:00 Kathrine Serna [facility] FL TIME OR (NON-REPORTABLE) 2022-07-21 18:06:00 Kathrine Serna [facility] FL TIME OR (NON-REPORTABLE) 2022-07-21 17:24:00 Juventino King [facility] FL TIME OR (NON-REPORTABLE) 2022-07-21 17:24:00 Juventino King [facility] ABG+COOX+NA+K+GLU+CA2+ 2022-07-21 17:21:00 Sun King [facility] ABG+COOX+NA+K+GLU+CA2+ 2022-07-21 15:30:00 Sun King [facility] XR SPINE THORACIC 1 VW 2022-07-21 14:09:00 Abigail Serna [facility] XR SPINE THORACIC 1 VW 2022-07-21 14:09:00 Abigail Serna [facility] ABG+COOX+NA+K+GLU+CA2+ 2022-07-21 14:04:00 Sun King [facility] XR SPINE THORACIC 1 VW 2022-07-21 13:44:00 Sun King [facility] XR SPINE THORACIC 1 VW 2022-07-21 13:44:00 Sun King [facility] FUSION SPINE POSTERIOR THORACIC WITH NAVIGATION 2022-07-21 12:03:00 Kathrine Serna [facility] FUSION SPINE POSTERIOR THORACIC WITH NAVIGATION 2022-07-21 12:03:00 Kathrine Serna [facility] MAGNESIUM 2022-07-21 07:24:00 Susan Grossman [facility] BASIC METABOLIC PANEL (NA, K, CL, CO2, GLUCOSE, BUN, CREATININE, CA) 2022-07-21 07:24:00 Susan Grossman [facility] CBC WITH DIFF 2022-07-21 07:24:00 Beto Huang [facility] MAGNESIUM 2022-07-21 07:24:00 Susan Grossman [facility] BASIC METABOLIC PANEL (NA, K, CL, CO2, GLUCOSE, BUN, CREATININE, CA) 2022-07-21 07:24:00 Susan Grossman [facility] CBC WITH DIFF 2022-07-21 07:24:00 Beto Huang [facility] SODIUM 2022-07-21 01:28:00 Russell, Danny [facility] SODIUM 2022-07-21 01:28:00 Russell, [facility] SODIUM 2022-07-20 21:13:00 Russell, [facility] SODIUM 2022-07-20 21:13:00 Russell, Danny [facility] AMMONIA, PLASMA 2022-07-20 20:20:00 Russell, Danny [facility] AMMONIA, PLASMA 2022-07-20 20:20:00 Russell, Danny [facility] SODIUM 2022-07-20 17:48:00 Russell, [facility] HEPATIC FUNCTION PANEL ([id number]) (ALB,T.PRO,BILI T,BU/BC,ALT,AST,ALK PHOS) 2022-07-20 17:48:00 Russell, Danny [facility] SODIUM 2022-07-20 17:48:00 Russell, [facility] HEPATIC FUNCTION PANEL ([id number]) (ALB,T.PRO,BILI T,BU/BC,ALT,AST,ALK PHOS) 2022-07-20 17:48:00 Russell, [facility] SODIUM 2022-07-20 17:48:00 Russell, [facility] HEPATIC FUNCTION PANEL ([id number]) (ALB,T.PRO,BILI T,BU/BC,ALT,AST,ALK PHOS) 2022-07-20 17:48:00 Russell, [facility] XR CHEST 1 VW 2022-07-20 17:34:00 Russell, Danny [facility] XR CHEST 1 VW 2022-07-20 17:34:00 Russell, [facility] PROTHROMBIN TIME / INR 2022-07-20 16:17:00 Russell, Olayinka [facility] ACTIVATED PARTIAL THRMPLAS JESSICA 2022-07-20 16:17:00 Russell, [facility] HB ABO GROUPING 2022-07-20 16:17:00 Russell, Danny [facility] PROTHROMBIN TIME / INR 2022-07-20 16:17:00 Russell, Olayinka [facility] ACTIVATED PARTIAL THRMPLAS JESSICA 2022-07-20 16:17:00 Russell, [facility] HB ABO GROUPING 2022-07-20 16:17:00 Russell, Danny [facility] PROTHROMBIN TIME / INR 2022-07-20 16:17:00 Russell, Olayinka [facility] ACTIVATED PARTIAL THRMPLAS JESSICA 2022-07-20 16:17:00 Russell, [facility] HB ABO GROUPING 2022-07-20 16:17:00 Russell, Danny [facility] SODIUM 2022-07-20 13:10:00 Russell, Danny [facility] SODIUM 2022-07-20 13:10:00 Russell, Danny [facility] SODIUM 2022-07-20 13:10:00 Russell, Danny [facility] CALCIUM 2022-07-20 09:16:00 Susan Grossman [facility] MAGNESIUM 2022-07-20 09:16:00 Susan Grossman [facility] CBC WITHOUT DIFF 2022-07-20 09:16:00 Susan Grossman [facility] SODIUM 2022-07-20 09:16:[facility] 20[facility]-07-20 09:16:00 Susan Grossman [facility] MAGNESIUM 2022-07-20 09:16:00 Susan Grossman [facility] CBC WITHOUT DIFF 2022-07-20 09:16[facility] 09:16:00 RussellDanny [facility] CALCIUM 2022-07-20 09:16:00 Susan Grossman [facility] MAGNESIUM 2022-07-20 09:16[facility]00 [facility]22-07-20 09:16[facility]00 [facility]-20 09:16:00 RussellDanny [facility] BASIC METABOLIC PANEL (NA, K, CL, CO2, GLUCOSE, BUN, CREATININE, CA) 2022-07-20 03:18:00 Susan Grossman [facility] SODIUM 2022-07-20 03:18:00 Carole Zendejas [facility] BASIC METABOLIC PANEL (NA, K, CL, CO2, GLUCOSE, BUN, CREATININE, CA) 2022-07-20 03:18:00 Susan Grossman [facility] SODIUM 2022-07-20 03:18:00 Carole Zendejas [facility] BASIC METABOLIC PANEL (NA, K, CL, CO2, GLUCOSE, BUN, CREATININE, CA) 2022-07-20 03:18:00 Susan Grossman [facility] SODIUM 2022-07-20 03:18:00 Carole Zendejas [facility] SODIUM 2022-07-20 01:44:00 RussellDanny [facility] SODIUM 2022-07-20 01:44:00 Russell, Danny [facility] SODIUM 2022-07-20 01:44:00 Russell, Danny [facility] SODIUM 2022-07-19 21:27:00 Russell, Danny [facility] SODIUM 2022-07-19 21:27:00 Russell, [facility] SODIUM 2022-07-19 21:27:00 Russell, [facility] MAGNETIC RESONANCE IMAGING UNDER ANESTHESIA 2022-07-19 21:00:00 Anesthesiology [facility] MAGNETIC RESONANCE IMAGING UNDER ANESTHESIA 2022-07-19 21:00:00 Anesthesiology [facility] SODIUM 2022-07-19 14:52:00 Carole Zendejas [facility] SODIUM 2022-07-19 14:52:00 Carole Zendejas [facility] SODIUM 2022-07-19 14:52:00 Carole Zendejas [facility] MR THORACIC SPINE WO CONTRAST 2022-07-19 14:10:00 Russell, [facility] MR THORACIC SPINE WO CONTRAST 2022-07-19 14:10:00 Russell, [facility] MR THORACIC SPINE WO CONTRAST 2022-07-19 14:10:00 Russell [facility] SODIUM 2022-07-19 10:35:[address] [facility] 2022-07-19 10:35:00 Carole Zendejas [facility] SODIUM 2022-07-19 10:35:[address] [facility]AST 2022-07-19 10:10:39 Russell [facility] CT HEAD WO CONTRAST 2022-07-19 10:10:39 Russell, [facility] CT HEAD WO CONTRAST 2022-07-19 10:10:39 Russell, [facility] MAGNESIUM 2022-07-19 05:29:00 Susan Grossman [facility] BASIC METABOLIC PANEL (NA, K, CL, CO2, GLUCOSE, BUN, CREATININE, CA) 2022-07-19 05:29:00 Susan Grossman [facility] CBC WITHOUT DIFF 2022-07-19 05:29:00 Susan Grossman [facility] MAGNESIUM 2022-07-19 05:29:00 Susan Grossman [facility] BASIC METABOLIC PANEL (NA, K, CL, CO2, GLUCOSE, BUN, CREATININE, CA) 2022-07-19 05:29:00 Susan Grossman [facility] CBC WITHOUT DIFF 2022-07-19 05:29:00 Susan Grossman [facility] MAGNESIUM 2022-07-19 05:29:00 Susan Grossman [facility] BASIC METABOLIC PANEL (NA, K, CL, CO2, GLUCOSE, BUN, CREATININE, CA) 2022-07-19 05:29:00 [facility] 2022-07-19 05:29:00 Susan Grossman [facility] SODIUM 2022-07-19 02:34:00 Carole Zendejas [facility] SODIUM 2022-07-19 02:34:00 [facility] 2022-07-19 02:34:00 Carole Zendejas [facility] SODIUM 2022-07-18 22:12:00 Carole Zendejas [facility] SODIUM 2022-07-18 22:12:00 Carole Zendejas [facility] SODIUM 2022-07-18 22:12:00 Carole Zendejas [facility] XR CHEST 1 VW 2022-07-18 20:00:00 [facility] XR CHEST 1 VW 2022-07-18 20:00:00 [facility] XR CHEST 1 VW 2022-07-18 20:00:00 Danny [facility] SODIUM 2022-07-18 17:55:00 Carole Zendejas Lola [facility] SODIUM 2022-07-18 17:55:00 Carole Zendejas Lola [facility] SODIUM 2022-07-18 17:55:00 CristianaCarole Lola [facility] SODIUM 2022-07-18 15:21:00 Carole Zendejas gorge Lola [facility] SODIUM 2022-07-18 15:21:00 CristianaCarole [facility] SODIUM 2022-07-18 15:21:00 Carole Zendejas gorge Lola [facility] CT HEAD WO CONTRAST 2022-07-18 09:43:00 Cristiana Rula Lola [facility] CT HEAD WO CONTRAST 2022-07-18 09:43:00 Rula Zendejas [facility] CT HEAD WO CONTRAST 2022-07-18 09:43:00 Rula Zendejas [facility] BASIC METABOLIC PANEL (NA, K, CL, CO2, GLUCOSE, BUN, CREATININE, CA) 2022-07-18 08:02:00 Beto uHang [facility] CBC WITH DIFF 2022-07-18 08:02:00 Beto Huang [facility] BASIC METABOLIC PANEL (NA, K, CL, CO2, GLUCOSE, BUN, CREATININE, CA) 2022-07-18 08:02:00 Beto Huang [facility] CBC WITH DIFF 2022-07-18 08:02:00 Beto Huang [facility] BASIC METABOLIC PANEL (NA, K, CL, CO2, GLUCOSE, BUN, CREATININE, CA) 2022-07-18 08:02:00 Beto Huang [facility] CBC WITH DIFF 2022-07-18 08:02:00 Beto Huang [facility] HB ECG ROUTINE & RHYTHM STRIP 2022-07-18 05:23:42 Beto Huang [facility] HB ECG ROUTINE & RHYTHM STRIP 2022-07-18 05:23:42 Beto Huang [facility] HB ECG ROUTINE & RHYTHM STRIP 2022-07-18 05:23:42 Beto Huang [facility] SODIUM 2022-07-18 02:42:00 Carole Zendejas [facility] SODIUM 2022-07-18 02:42:00 Cristiana Ri gorge Davila [facility] SODIUM 2022-07-18 02:42:00 Hayworth, Ri gorge Davila [facility] SODIUM 2022-07-17 22:49:00 Hayworth, Ri gorge Davila [facility] SODIUM 2022-07-17 22:49:00 Hayworth, Ri [facility] SOD[facility]UM 2022-07-17 22:49:00 Hayworth, Ri gorge Lola [facility] SODIUM 2022-07-17 19:31:00 Hayworth, Ri gorge Davila [facility] SODIUM 2022-07-17 19:31:00 Elfegoworth, Ri gorge Davila [facility] SODIUM 2022-07-17 19:31:00 Cristiana, [facility] 2022-07-17 09:54:28 [facility] 2022-07-17 09:54:28 [facility] 2022-07-17 09:54:28 Rose Disla [facility] PHOSPHORUS 2022-07-17 08:25:00 Pedro Arellano [facility] MAGNESIUM 2022-07-17 08:25:00 Pedro Arellano [facility] BASIC METABOLIC PANEL (NA, K, CL, CO2, GLUCOSE, BUN, CREATININE, CA) 2022-07-17 08:25:00 Pedro Arellano [facility] CBC WITHOUT DIFF 2022-07-17 08:25:00 Pedro Arellano [facility] MRSA / MSSA SCREEN BY PCRJAMISON 2022-07-17 08:25:00 Pratibha Disla [facility] PHOSPHORUS 2022-07-17 08:25:00 Pedro Arellano [facility] MAGNESIUM 2022-07-17 08:25:00 Pedro Arellano [facility] BASIC METABOLIC PANEL (NA, K, CL, CO2, GLUCOSE, BUN, CREATININE, CA) 2022-07-17 08:25:00 Pedro Arellano [facility] CBC WITHOUT DIFF 2022-07-17 08:25:00 Pedro Arellano [facility] MRSA / MSSA SCREEN BY PCR, JAMISON 2022-07-17 08:25:00 Pratibha Disla [facility] PHOSPHORUS 2022-07-17 08:25:00 Pedro Arellano [facility] MAGNESIUM 2022-07-17 08:25:00 Pedro Arellano [facility] BASIC METABOLIC PANEL (NA, K, CL, CO2, GLUCOSE, BUN, CREATININE, CA) 2022-07-17 08:25:00 Pedro Arellano [facility] CBC WITHOUT DIFF 2022-07-17 08:25:00 Pedro Arellano [facility] MRSA / MSSA SCREEN BY PCR, [facility] 2022-07-17 08:25:00 [facility] BONES WO CONTRAST 2022-07-17 04:36:[facility] TEMPORAL BONES WO CONTRAST 2022-07-17 04:36:06 [facility] CT TEMPORAL BONES WO CONTRAST 2022-07-17 04:36:[address] [facility] ABORH CONFIRMATION (LAB ONLY) 2022-07-17 04:07:00 [facility] ABORH CONFIRMATION (LAB ONLY) 2022-07-17 04:07:00 [facility] ABORH CONFIRMATION (LAB ONLY) 2022-07-17 04:07:00 [facility] CT TRAUMA HEAD WO CONTRAST 2022-07-17 02:19:25 Pedro Arellano [facility] CT TRAUMA THORAX W CONTRAST 2022-07-17 02:19:25 Pedro Arellano [facility] CT TRAUMA CERVICAL SPINE WO CONTRAST 2022-07-17 02:19:25 Pedro Arellano [facility] CT TRAUMA THORACIC SPINE WO CONTRAST 2022-07-17 02:19:25 Pedro Arellano [facility] CT TRAUMA ABDOMEN PELVIS W CONTRAST 2022-07-17 02:19:25 Pedro Arellano [facility] CT TRAUMA LUMBAR SPINE WO CONTRAST 2022-07-17 02:19:25 Pedro Arellano [facility] CT MAXILLOFACIAL/MANDIBLE WO CONTRAST 2022-07-17 02:19:25 Pedro Arellano [facility] CT TRAUMA HEAD WO CONTRAST 2022-07-17 02:19:25 Pedro Arellano [facility] CT TRAUMA THORAX W CONTRAST 2022-07-17 02:19:25 Pedro Arellano [facility] CT TRAUMA CERVICAL SPINE WO CONTRAST 2022-07-17 02:19:25 Pedro Arellano [facility] CT TRAUMA THORACIC SPINE WO CONTRAST 2022-07-17 02:19:25 Pedro rAellano [facility] CT TRAUMA ABDOMEN PELVIS W CONTRAST 2022-07-17 02:19:25 Pedro Arellano [facility] CT TRAUMA LUMBAR SPINE WO CONTRAST 2022-07-17 02:19:25 Pedro Arellano [facility] CT MAXILLOFACIAL/MANDIBLE WO CONTRAST 2022-07-17 02:19:25 Pedro Arellano [facility] CT TRAUMA HEAD WO CONTRAST 2022-07-17 02:19:25 Pedro Arellano [facility] CT TRAUMA THORAX W CONTRAST 2022-07-17 02:19:25 Pedro Arellano [facility] CT TRAUMA CERVICAL SPINE WO CONTRAST 2022-07-17 02:19:25 Pedro Arellano [facility] CT TRAUMA THORACIC SPINE WO CONTRAST 2022-07-17 02:19:25 Pedro Arellano [facility] CT TRAUMA ABDOMEN PELVIS W CONTRAST 2022-07-17 02:19:25 Pedro Arellano [facility] CT TRAUMA LUMBAR SPINE WO CONTRAST 2022-07-17 02:19:25 Pedro Arellano [facility] CT MAXILLOFACIAL/MANDIBLE WO CONTRAST 2022-07-17 02:19:25 Pedro Arellano [facility] BASIC METABOLIC PANEL (NA, K, CL, CO2, GLUCOSE, BUN, CREATININE, CA) 2022-07-17 01:55:00 Deanna Palmer [facility] CBC WITHOUT DIFF 2022-07-17 01:55:00 Deanna Palmer [facility] PROTHROMBIN TIME / INR 2022-07-17 01:55:00 Sherron Palmer [facility] ACTIVATED PARTIAL THRMPLAS JESSICA 2022-07-17 01:55:00 Deanna Palmer [facility] HB ABO GROUPING 2022-07-17 01:55:00 Deanna Palmer [facility] BASIC METABOLIC PANEL (NA, K, CL, CO2, GLUCOSE, BUN, CREATININE, CA) 2022-07-17 01:55:00 Deanna Palmer [facility] CBC WITHOUT DIFF 2022-07-17 01:55:00 Deanna Palmer [facility] PROTHROMBIN TIME / INR 2022-07-17 01:55:00 Sherron Palmer [facility] ACTIVATED PARTIAL THRMPLAS JESSICA 2022-07-17 01:55:00 Deanna Palmer [facility] HB ABO GROUPING 2022-07-17 01:55:00 Deanna Palmer [facility] BASIC METABOLIC PANEL (NA, K, CL, CO2, GLUCOSE, BUN, CREATININE, CA) 2022-07-17 01:55:00 Deanna Palmer [facility] CBC WITHOUT DIFF 2022-07-17 01:55:00 Deanna Palmer [facility] PROTHROMBIN TIME / INR 2022-07-17 01:55:00 Sherron Palmer [facility] ACTIVATED PARTIAL THRMPLAS JESSICA 2022-07-17 01:55:00 Deanna Palmer [facility] HB ABO GROUPING 2022-07-17 01:55:00 Deanna Palmer [facility] ADM - [facility] 2022-07-16 05:01:00 Doctor Mala castellanos, [place] [facility] 2022-07-16 05:01:00 Doctor Mala castellanos, [place] [facility] ADM - [facility] 2022-07-16 05:01:00 Doctor Mala castellanos, [place] [facility] Encounters Start Date/Time End Date/Time Encounter Type Admission Type Attending [facility] Care Facility Care Department Encounter ID Source 2022-08-23 14:15:00 Outpatient YVETTE [id number] [id number] 10:30:00 2022-12-27 10:30:00 Outpatient KATHRINE BHARDWAJ NATHAN [facility] [id number] [facility] 2022-10-27 10:30:00 2022-10-27 10:30:00 Outpatient MATT WIN MUKYRashad [facility] [id number] [facility] 2022-09-13 08:30:00 2022-09-13 08:30:00 Outpatient MATT WIN MUKYRashad [facility] [id number] [facility] 2022-09-13 08:30:00 2022-09-13 08:30:00 Hospital Encounter Ángeleduardo [facility] 1.2.840.114 350.1.13.10 4.2.7.2.686 [id number] [facility] 2022-09-13 08:30:00 2022-09-13 08:30:00 Hospital Encounter Marilyn [facility] 1.2.840.114 350.1.13.10 4.2.7.2.686 [id number] [facility] 2022-09-13 00:00:00 2022-09-13 00:00:00 Telephone Jose Sandersctrashad [facility] 1.2.840.114 350.1.13.10 4.2.7.2.686 [id number] [facility] 2022-09-08 09:30:00 2022-09-08 10:19:01 Outpatient R MATT SANDERS [facility] [id number] [facility] 2022-09-08 09:30:00 2022-09-08 10:19:01 [facility] 1.2.840.114 350.1.13.10 4.2.7.2.686 [id number] [facility] 2022-08-26 10:15:00 2022-08-26 10:30:00 Office Visit Kathrine Serna [facility] 1.2840.114 350.1.13.10 4.2.7.2.686 [id number] [facility] 2022-08-26 10:15:00 2022-08-26 10:15:00 Outpatient R KATHRINE SERNA [facility] [id number] [facility] 2022-08-26 00:00:00 2022-08-26 00:00:00 Orders Only Doctor Unassigned, [place] [facility] 1.2840.114 350.1.13.10 4.2.7.2.686 [id number] [facility] 2022-08-19 00:00:00 2022-08-19 00:00:00 Patient Secure Msg Doctor Unassigned, [place] [facility] 1.2.840.114 350.1.13.10 4.2.7.2.686 [id number] [facility] 2022-08-04 00:00:00 2022-08-04 00:00:00 Telephone Pcp, Patient Does Not Have A [facility] 1.2.840.114 350.1.13.10 4.2.7.2.686 [id number] [facility] 2022-08-02 00:00:00 2022-08-02 00:00:00 Transition of Care Juani Finn 1.2.840.114 350.1.13.10 4.2.7.2.686 [id number] [facility] 2022-07-16 20:46:00 2022-07-30 17:15:00 Inpatient KATHRINE BLANCAS, [facility] [id number] [facility] 2022-07-16 20:46:00 2022-07-30 17:15:00 Hospital [facility] 1.2.840.114 350.1.13.10 4.2.7.2.686 [id number] [facility] 2022-07-21 06:45:00 2022-07-21 12:27:00 Surgery [facility] 1.2.840.114 350.1.13.10 4.2.7.2.686 [id number] [facility] 2022-07-19 08:00:00 2022-07-19 09:17:00 [facility] 1.2.840.114 350.1.13.10 4.2.7.2.686 [id number] [facility] Results Test Description Test Time Test Comments Results Result Co mments Source [facility] WITH [id number] 11:09:33* Test Item Value Reference Range Interpretation Comme nts WBC (test code = 6690-2) 12.17 See_Comment H [Automated messa ge] The system which generated this result transmitted reference range: 4.20 - 10.70 10*3/?L. The reference range was not used to interpret this result as normal/abnormal. RBC (test code = 789-8) 3.24 See_Comment L [Automated messa ge] The system which generated this result transmitted reference range: 4.26 - 5.52 10*6/?L. The reference range was not used to interpret this result as normal/abnormal. HGB (test code = 718-7) 10.9 g/dL 12.2-16.4 L HCT (test code = 4544-3) 30.9 % 38.4-49.3 L MCV (test code = 787-2) 95.4 fL 81.7-95.6 MCH (test code = 785-6) 33.6 pg 26.1-32.7 H MCHC (test code = 786-4) 35.3 g/dL 31.2-35.0 H RDW-SD (test code = 54890-9) 42.0 fL 38.5-51.6 RDW-CV (test code = 788-0) 12.0 % 12.1-15.4 L PLT (test code = 777-3) 382 See_Comment H [Automated messa ge] The system which generated this result transmitted reference range: 150 - 328 10*3/?L. The reference range was not used to interpret this result as normal/abnormal. MPV (test code = 81421-4) 10.0 fL 9.8-13.0 NRBC/100 WBC (test code = 4020489357) 0.0 See_Comment [Automated [employer] ssage] The system which generated this result transmitted reference range: 0.0 - 10.0 /100 WBCs. The reference range was not used to interpret this result as normal/abnormal. NRBC x10^3 (test code = 5324303466) See_Comment [Automated messa ge] The system which generated this result transmitted reference range: 10*3/?L. The reference range was not used to interpret this result as normal/abnormal. GRAN MAT (NEUT) % (test code = 770-8) 70.3 % IMM GRAN % (test code = 5096682854) 1.30 % LYMPH % (test code = 736-9) 12.2 % MONO % (test code = 5905-5) 14.0 % EOS % (test code = 713-8) 1.4 % BASO % (test code = 706-2) 0.8 % GRAN MAT x10^3(ANC) (test code = 0315238527) 8.55 10*3/uL 1.99-6.95 H IMM GRAN x10^3 (test code = 5290120835) 0.16 10*3/uL 0.00-0.06 H LYMPH x10^3 (test code = 731-0) 1.49 10*3/uL 1.09-3.23 MONO x10^3 (test code = 742-7) 1.70 10*3/uL 0.36-1.02 H EOS x10^3 (test code = 711-2) 0.17 10*3/uL 0.06-0.53 BASO x10^3 (test code = 704-7) 0.10 10*3/uL 0.01-0.09 H Lab Interpretation (test code = 99616-0) [facility]:53:[facility]* Test Item Value Reference Range Interpretation Comme nts PHOSPHORUS (test code = 6491646370) 3.7 mg/dL 2.5-5.0 Lab Interpretation (test cod e = 62164-1) [facility] (NA, K, CL, CO2, GLUCOSE, BUN, CREATININE, CA)2022-07-30 10:53:33* Test Item Value Reference Range Interpretation Comme nts NA (test code = 0321450909) 136 mmol/L 135-145 K (test code = 1697951653) 3.4 mmol/L 3.5-5.0 L CL (test code = 4591917894) 99 mmol/L 98-108 CO2 TOTAL (test code = 1693344538) 28 mmol/L 23-31 AGAP (test code = 1682334356) 9 2-16 BUN (test code = 9742589918) 8 mg/dL 7-23 GLUCOSE (test code = 9595789652) 109 mg/dL 70-110 CREATININE (test code = 8851048295) 0.65 mg/dL 0.60-1.25 CALCIUM (test code = 7043552959) 8.7 mg/dL 8.6-10.6 eGFR (test code = 4695882381) 124.9 mL/min/1.73m2 TOMY (test code = TOMY) Association of Glomerular Filtration Rate (GFR) and Staging of Kidney Disease* + --+ --+ ------+| GFR (mL/min/1.73 m2) ?| With Kidney Damage ?| ?Without Kidney Damage+ --------+ --------+ +| ?>90 ?| ?Stage one ?| ? Normal ?+ ---+ ---+ -------+| ?60-89 ?| ?Stage two ?| ? Decreased GFR ? + --+ --+ ------+| ?30-59 ?| ?Stage three ?| ? Stage three ? + --+ --+ ------+| ?15-29 ?| ?Stage four ? | ? Stage four ?+ ---+ ---+ -------+| ?<15 (or dialysis) ? ?| ?Stage five ? | ? Stage five ?+ ---+ ---+ -------+ *Each stage assumes the associated GFR level has been in effect for at least three months. ?Stages 1 to 5, with or without kidney disease, indicate chronic kidney disease. Notes: Determination of stages one and two (with eGFR >59mL/min/1.73 m2) requires estimation of kidney damage for at least three months as defined by structural or functional abnormalities of the kidney, manifested by either:Pathological abnormalities or Markers of kidney damage (including abnormalities in the composition of the blood or urine or abnormalities in imaging tests). Lab Interpretation (test code = 34176-0) [facility] 10:53:33* Test Item Value Reference Range Interpretation Comme nts MAGNESIUM (test code = 8565957589) 2.0 mg/dL 1.7-2.4 Lab Interpretation (test cod e = 80590-6) [facility] [id number] 10:58:10* Test Item Value Reference Range Interpretation Comme nts WBC (test code = 6690-2) 12.07 See_Comment H [Automated [employer]] The system which generated this result transmitted reference range: 4.20 - 10.70 10*3/?L. The reference range was not used to interpret this result as normal/abnormal. RBC (test code = 789-8) 3.23 See_Comment L [Automated messa ge] The system which generated this result transmitted reference range: 4.26 - 5.52 10*6/?L. The reference range was not used to interpret this result as normal/abnormal. HGB (test code = 718-7) 10.9 g/dL 12.2-16.4 L HCT (test code = 4544-3) 30.9 % 38.4-49.3 L MCV (test code = 787-2) 95.7 fL 81.7-95.6 H MCH (test code = 785-6) 33.7 pg 26.1-32.7 H MCHC (test code = 786-4) 35.3 g/dL 31.2-35.0 H RDW-SD (test code = 21087-2) 41.4 fL 38.5-51.6 RDW-CV (test code = 788-0) 11.9 % 12.1-15.4 L PLT (test code = 777-3) 334 See_Comment H [Automated messa ge] The system which generated this result transmitted reference range: 150 - 328 10*3/?L. The reference range was not used to interpret this result as normal/abnormal. MPV (test code = 22123-7) 10.1 fL 9.8-13.0 NRBC/100 WBC (test code = 3269266251) 0.0 See_Comment [Automated me ssage] The system which generated this result transmitted reference range: 0.0 - 10.0 /100 WBCs. The reference range was not used to interpret this result as normal/abnormal. NRBC x10^3 (test code = 6104965114) See_Comment [Automated messa ge] The system which generated this result transmitted reference range: 10*3/?L. The reference range was not used to interpret this result as normal/abnormal. GRAN MAT (NEUT) % (test code = 770-8) 68.2 % IMM GRAN % (test code = 7191351442) 1.30 % LYMPH % (test code = 736-9) 12.9 % MONO % (test code = 5905-5) 15.5 % EOS % (test code = 713-8) 1.2 % BASO % (test code = 706-2) 0.9 % GRAN MAT x10^3(ANC) (test code = 2233023485) 8.22 10*3/uL 1.99-6.95 H IMM GRAN x10^3 (test code = 0045302760) 0.16 10*3/uL 0.00-0.06 H LYMPH x10^3 (test code = 731-0) 1.56 10*3/uL 1.09-3.23 MONO x10^3 (test code = 742-7) 1.87 10*3/uL 0.36-1.02 H EOS x10^3 (test code = 711-2) 0.15 10*3/uL 0.06-0.53 BASO x10^3 (test code = 704-7) 0.11 10*3/uL 0.01-0.09 H Lab Interpretation (test code = 99074-8) [facility]normal [facility] HospitalTroponin [id number] 15:08:25* Test Item Value Reference Range Interpretation Comme nts TROPONIN I (test code = 8244109617) 0.006 ng/mL <=0.034 TOMY (test code = TOMY) Reference (Normal) Range (defined by the 99th percentile reference limit): <= 0.034 ng/mL Note: Cardiac troponin begins to rise 3-4 hours after the onset of ischemia. Repeat in 4-6 hours if the sample was drawn within 3-4 hours of the onset of the symptom and found normal. Diagnosis of myocardial injury is made with acute changes in cTn concentrations with at least one serial sample above the 99th percentile upper reference limit (URL), taken together with the patient's clinical presentation. Biotin has been reported to cause a negative bias, interpret results relative to patient's use of biotin. Lab Interpretation (test code = 27718-7) Normal [facility]th[facility] Time / [id number] 14:58:21* Test Item Value Reference Range Interpretation Comme nts PROTIME PATIENT (test code = 5964-2) 13.3 See_Comment H [Automated messa ge] The system which generated this result transmitted reference range: 10.1 - 12.6 Seconds. The reference range was not used to interpret this result as normal/abnormal. INR (test code = 6301-6) 1.2 Normal INR <1.1; Warfarin Therapeutic range 2.0 to 3.0 or 2.5 to 3.5, depending upon the indications. Lab Interpretation (test code = 55904-4) [facility] 14:58:21* Test Item Value Reference Range Interpretation Comme [facility] APTT Patient (test code = 3173-2) 31 See_Comment [Automated messa ge] The system which generated this result transmitted reference range: 26 - 36 Seconds. The reference range was not used to interpret this result as normal/abnormal. Lab Interpretation (test code = 19505-4) Normal [facility]Profile / [id number] 14:56:04* Test Item Value Reference Range Interpretation Comme [facility] WBC (test code = 6690-2) 11.80 See_Comment H [Automated message] The system which generated this result transmitted reference range: 4.20 - 10.70 10*3/?L. The reference range was not used to interpret this result as normal/abnormal. RBC (test code = 789-8) 3.22 See_Comment L [Automated message] The system which generated this result transmitted reference range: 4.26 - 5.52 10*6/?L. The reference range was not used to interpret this result as normal/abnormal. HGB (test code = 718-7) 10.8 g/dL 12.2-16.4 L HCT (test code = 4544-3) 30.7 % 38.4-49.3 L MCH (test code = 785-6) 33.5 pg 26.1-32.7 H MCV (test code = 787-2) 95.3 fL 81.7-95.6 MCHC (test code = 786-4) 35.2 g/dL 31.2-35.0 H PLT (test code = 777-3) 323 See_Comment [Automated message] The system which generated this result transmitted reference range: 150 - 328 10*3/?L. The reference range was not used to interpret this result as normal/abnormal. MPV (test code = 98057-6) 9.9 fL 9.8-13.0 RDW-CV (test code = 788-0) 11.9 % 12.1-15.4 L RDW-SD (test code = 11063-0) 41.6 fL 38.5-51.6 NRBC x10^3 (test code = 9002796595) See_Comment [Automated [employer]] The system which generated this result transmitted reference range: 10*3/?L. The reference range was not used to interpret this result as normal/abnormal. NRBC/100 WBC (test code = 9903044732) 0.0 See_Comment [Automated [employer]] The system which generated this result transmitted reference range: 0.0 - 10.0 /100 WBCs. The reference range was not used to interpret this result as normal/abnormal. IPF % (test code = 5917989696) Lab Interpretation (test code = 14294-0) Abnormal [facility] Metabolic Panel (NA, K, CL, CO2, Glucose, BUN, Creatinine, CA)2022-07-28 14:54:22* Test Item Value Reference Range Interpretation Comme nts NA (test code = 7759264645) 131 mmol/L 135-145 L K (test code = 5747842580) 3.5 mmol/L 3.5-5.0 CL (test code = 0028095000) 94 mmol/L 98-108 L CO2 TOTAL (test code = 8845559565) 27 mmol/L 23-31 AGAP (test code = 5061472240) 10 2-16 BUN (test code = 1303670361) 11 mg/dL 7-23 GLUCOSE (test code = 6624604924) 102 mg/dL 70-110 CREATININE (test code = 1080472499) 0.66 mg/dL 0.60-1.25 CALCIUM (test code = 4064994463) 8.6 mg/dL 8.6-10.6 eGFR (test code = 7210422438) 122.7 mL/min/1.73m2 TOMY (test code = TOMY) Association of Glomerular Filtration Rate (GFR) and Staging of Kidney Disease* + --+ --+ ------+| GFR (mL/min/1.73 m2) ?| With Kidney Damage ?| ?Without Kidney Damage+ --------+ --------+ +| ?>90 ?| ?Stage one ?| ? Normal ?+ ---+ ---+ -------+| ?60-89 ?| ?Stage two ?| ? Decreased GFR ? + --+ --+ ------+| ?30-59 ?| ?Stage three ?| ? Stage three ? + --+ --+ ------+| ?15-29 ?| ?Stage four ? | ? Stage four ?+ ---+ ---+ -------+| ?<15 (or dialysis) ? ?| ?Stage five ? | ? Stage five ?+ ---+ ---+ -------+ *Each stage assumes the associated GFR level has been in effect for at least three months. ?Stages 1 to 5, with or without kidney disease, indicate chronic kidney disease. Notes: Determination of stages one and two (with eGFR >59mL/min/1.73 m2) requires estimation of kidney damage for at least three months as defined by structural or functional abnormalities of the kidney, manifested by either:Pathological abnormalities or Markers of kidney damage (including abnormalities in the composition of the blood or urine or abnormalities in imaging tests). Lab Interpretation (test code = 86043-6) [facility]normal [facility] ([facility])2022-07-28 14:25:56* Test Item Value Reference Range Interpretation Comme [facility] POCT GLU (test code = 9301620601) 99 mg/dL 70-110 Lab Interpretation (test cod e = 24006-4) Normal [facility]+COOX+NA+K+GLU+CA2+2022-07-26 01:39:03* Test Item Value Reference Range Interpretation Comme [facility] PH (test code = 2) 7.32 7.35-7.45 L PCO2 (test code = 3901929583) 35 See_Comment [Automated messa [employer]] The system which generated this result transmitted reference range: 35 - 45 mmHg. The reference range was not used to interpret this result as normal/abnormal. PO2 (test code = 2947431363) 329 See_Comment H [Automated messa [employer]] The system which generated this result transmitted reference range: 80 - 100 mmHg. The reference range was not used to interpret this result as normal/abnormal. HCO3 (test code = 5659513912) 17 See_Comment L [Automated messa ge] The system which generated this result transmitted reference range: 22 - 26 mEq/L. The reference range was not used to interpret this result as normal/abnormal. BE (test code = 8907495811) -7.8 See_Comment L [Automated messa ge] The system which generated this result transmitted reference range: -3.0 - 3.0 mEq/L. The reference range was not used to interpret this result as normal/abnormal. THB (test code = 7844942016) 11.1 g/dL 13.5-18.0 L %O2HB (test code = 0289371999) 97.7 % 94.0-99.0 %COHB ART (test code = 3833840349) 1.4 % 0.0-1.5 %METHB ART (test code = 2312098991) 0.4 % 0.4-1.5 VOL%O2 ART (test code = 5178632859) 16.1 % 15.0-23.0 QUES NA (test code = 3311210051) 137 mmol/L 135-145 K+ (test code = 9242742581) 3.6 mmol/L 3.5-5.0 AC CA IONZ (test code = 3547943800) 4.20 mg/dL 4.50-5.30 L GLUCOSE (test code = 9833940985) 98 mg/dL 70-110 Lab Interpretation (test code = 40947-0) [facility]normal [facility]+NA+K+GLU+CA2+2022-07-26 01:38:23* Test Item Value Reference Range Interpretation Comme nts PH (test code = 2) 7.30 7.35-7.45 L PCO2 (test code = 7554820825) 41 See_Comment [Automated messa ge] The system which generated this result transmitted reference range: 35 - 45 mmHg. The reference range was not used to interpret this result as normal/abnormal. PO2 (test code = 1764264118) 350 See_Comment H [Automated messa ge] The system which generated this result transmitted reference range: 80 - 100 mmHg. The reference range was not used to interpret this result as normal/abnormal. HCO3 (test code = 8673532171) 20 See_Comment L [Automated messa ge] The system which generated this result transmitted reference range: 22 - 26 mEq/L. The reference range was not used to interpret this result as normal/abnormal. BE (test code = 6408150204) -6.0 See_Comment L [Automated messa ge] The system which generated this result transmitted reference range: -3.0 - 3.0 mEq/L. The reference range was not used to interpret this result as normal/abnormal. THB (test code = 9439979051) 12.7 g/dL 13.5-18.0 L %O2HB (test code = 3975028975) 98.0 % 94.0-99.0 %COHB ART (test code = 6909521590) 1.4 % 0.0-1.5 %METHB ART (test code = 7699080358) 0.0 % 0.4-1.5 L VOL%O2 ART (test code = 9079866156) 18.4 % 15.0-23.0 QUES NA (test code = 0471093718) 137 mmol/L 135-145 K+ (test code = 0192315534) 3.3 mmol/L 3.5-5.0 L AC CA IONZ (test code = 7106645221) 4.50 mg/dL 4.50-5.30 GLUCOSE (test code = 8678757018) 106 mg/dL 70-110 Lab Interpretation (test code = 38391-8) [facility]normal [facility]+NA+K+GLU+CA2+2022-07-26 01:38:02* Test Item Value Reference Range Interpretation Comme nts PH (test code = 2) 7.34 7.35-7.45 L PCO2 (test code = 4636400508) 39 See_Comment [Automated messa ge] The system which generated this result transmitted reference range: 35 - 45 mmHg. The reference range was not used to interpret this result as normal/abnormal. PO2 (test code = 7439415963) 272 See_Comment H [Automated messa ge] The system which generated this result transmitted reference range: 80 - 100 mmHg. The reference range was not used to interpret this result as normal/abnormal. HCO3 (test code = 4311338453) 20 See_Comment L [Automated messa ge] The system which generated this result transmitted reference range: 22 - 26 mEq/L. The reference range was not used to interpret this result as normal/abnormal. BE (test code = 0558234868) -5.0 See_Comment L [Automated messa ge] The system which generated this result transmitted reference range: -3.0 - 3.0 mEq/L. The reference range was not used to interpret this result as normal/abnormal. THB (test code = 6579018075) 13.4 g/dL 13.5-18.0 L %O2HB (test code = 4877796082) 97.2 % 94.0-99.0 %COHB ART (test code = 7445724784) 2.0 % 0.0-1.5 H %METHB ART (test code = 2603662245) 0.4 % 0.4-1.5 VOL%O2 ART (test code = 3510968460) 19.0 % 15.0-23.0 QUES NA (test code = 8769684085) 133 mmol/L 135-145 L K+ (test code = 9392001580) 3.5 mmol/L 3.5-5.0 AC CA IONZ (test code = 3540718865) 4.60 mg/dL 4.50-5.30 GLUCOSE (test code = 6490380222) 110 mg/dL 70-110 Lab Interpretation (test code = 36250-2) Abnormal [facility] with [id number] 21:32:08* Test Item Value Reference Range Interpretation Comme nts WBC (test code = 6690-2) 10.07 See_Comment [Automated messa ge] The system which generated this result transmitted reference range: 4.20 - 10.70 10*3/?L. The reference range was not used to interpret this result as normal/abnormal. RBC (test code = 789-8) 3.05 See_Comment L [Automated messa ge] The system which generated this result transmitted reference range: 4.26 - 5.52 10*6/?L. The reference range was not used to interpret this result as normal/abnormal. HGB (test code = 718-7) 10.4 g/dL 12.2-16.4 L HCT (test code = 4544-3) 30.5 % 38.4-49.3 L MCV (test code = 787-2) 100.0 fL 81.7-95.6 H MCH (test code = 785-6) 34.1 pg 26.1-32.7 H MCHC (test code = 786-4) 34.1 g/dL 31.2-35.0 RDW-SD (test code = 78251-2) 44.2 fL 38.5-51.6 RDW-CV (test code = 788-0) 12.0 % 12.1-15.4 L PLT (test code = 777-3) 186 See_Comment [Automated messa ge] The system which generated this result transmitted reference range: 150 - 328 10*3/?L. The reference range was not used to interpret this result as normal/abnormal. MPV (test code = 03560-1) 10.0 fL 9.8-13.0 NRBC/100 WBC (test code = 2119463790) 0.0 See_Comment [Automated [employer] ssage] The system which generated this result transmitted reference range: 0.0 - 10.0 /100 WBCs. The reference range was not used to interpret this result as normal/abnormal. NRBC x10^3 (test code = 1237407028) See_Comment [Automated [employer]] The system which generated this result transmitted reference range: 10*3/?L. The reference range was not used to interpret this result as normal/abnormal. GRAN MAT (NEUT) % (test code = 770-8) 70.2 % IMM GRAN % (test code = 4118136377) 0.40 % LYMPH % (test code = 736-9) 10.3 % MONO % (test code = 5905-5) 18.1 % EOS % (test code = 713-8) 0.7 % BASO % (test code = 706-2) 0.3 % GRAN MAT x10^3(ANC) (test code = 4150359857) 7.07 10*3/uL 1.99-6.95 H IMM GRAN x10^3 (test code = 4406670454) 0.04 10*3/uL 0.00-0.06 LYMPH x10^3 (test code = 731-0) 1.04 10*3/uL 1.09-3.23 L MONO x10^3 (test code = 742-7) 1.82 10*3/uL 0.36-1.02 H EOS x10^3 (test code = 711-2) 0.07 10*3/uL 0.06-0.53 BASO x10^3 (test code = 704-7) 0.03 10*3/uL 0.01-0.09 Lab Interpretation (test code = 59735-2) Abnormal [facility] Metabolic Panel (NA, K, CL, CO2, GLUCOSE, BUN, CREATININE, CA)2022-07-23 21:14:24* Test Item Value Reference Range Interpretation Comme nts NA (test code = 0409594711) 139 mmol/L 135-145 K (test code = 0231921299) 3.0 mmol/L 3.5-5.0 L CL (test code = 7735795337) 104 mmol/L 98-108 CO2 TOTAL (test code = 4185473609) 26 mmol/L 23-31 AGAP (test code = 4949150925) 9 2-16 BUN (test code = 8997231038) 15 mg/dL 7-23 GLUCOSE (test code = 6950999830) 124 mg/dL 70-110 H CREATININE (test code = 7384762898) 0.62 mg/dL 0.60-1.25 CALCIUM (test code = 3170701559) 8.4 mg/dL 8.6-10.6 L eGFR (test code = 2196740181) 131.9 mL/min/1.73m2 TOMY (test code = TOMY) Association of Glomerular Filtration Rate (GFR) and Staging of Kidney Disease* + --+ --+ ------+| GFR (mL/min/1.73 m2) ?| With Kidney Damage ?| ?Without Kidney Damage+ --------+ --------+ +| ?>90 ?| ?Stage one ?| ? Normal ?+ ---+ ---+ -------+| ?60-89 ?| ?Stage two ?| ? Decreased GFR ? + --+ --+ ------+| ?30-59 ?| ?Stage three ?| ? Stage three ? + --+ --+ ------+| ?15-29 ?| ?Stage four ? | ? Stage four ?+ ---+ ---+ -------+| ?<15 (or dialysis) ? ?| ?Stage five ? | ? Stage five ?+ ---+ ---+ -------+ *Each stage assumes the associated GFR level has been in effect for at least three months. ?Stages 1 to 5, with or without kidney disease, indicate chronic kidney disease. Notes: Determination of stages one and two (with eGFR >59mL/min/1.73 m2) requires estimation of kidney damage for at least three months as defined by structural or functional abnormalities of the kidney, manifested by either:Pathological abnormalities or Markers of kidney damage (including abnormalities in the composition of the blood or urine or abnormalities in imaging tests). Lab Interpretation (test code = 39044-3) [facility] 21:05:45* Test Item Value Reference Range Interpretation Comme [facility] APTT Patient (test code = 3173-2) 32 See_Comment [Automated [employer]] The system which generated this result transmitted reference range: 26 - 36 Seconds. The reference range was not used to interpret this result as normal/abnormal. Lab Interpretation (test code = 49131-5) Normal [facility] (PT) / [id number] 21:05:45 * Test Item Value Reference Range Interpretation Comme [facility] PROTIME PATIENT (test code = 5964-2) 12.4 See_Comment [Automated [employer]] The system which generated this result transmitted reference range: 10.1 - 12.6 Seconds. The reference range was not used to interpret this result as normal/abnormal. INR (test code = 6301-6) 1.1 Normal INR <1.1; Warfarin Therapeutic range 2.0 to 3.0 or 2.5 to 3.5, depending upon the indications. Lab Interpretation (test code = 38608-8) Normal [facility] 11:26:34* Test Item Value Reference [facility]test code = 7992517712) 2.1 mg/dL 1.7-2.4 Lab Interpretation (test cod e = 71148-9) Normal [facility] (NA, K, CL, CO2, GLUCOSE, BUN, CREATININE, CA)2022-07-23 11:26:34* Test Item Value Reference Range Interpretation Comme nts NA (test code = 3908063572) 137 mmol/L 135-145 K (test code = 7177155006) 3.4 mmol/L 3.5-5.0 L CL (test code = 0367562513) 106 mmol/L 98-108 CO2 TOTAL (test code = 1572820576) 22 mmol/L 23-31 L AGAP (test code = 5974750141) 9 2-16 BUN (test code = 4809118752) 16 mg/dL 7-23 GLUCOSE (test code = 5455359107) 120 mg/dL 70-110 H CREATININE (test code = 4757976671) 0.61 mg/dL 0.60-1.25 CALCIUM (test code = 1841365417) 8.4 mg/dL 8.6-10.6 L eGFR (test code = 2774683720) 134.4 mL/min/1.73m2 TOMY (test code = TOMY) Association of Glomerular Filtration Rate (GFR) and Staging of Kidney Disease* + --+ --+ ------+| GFR (mL/min/1.73 m2) ?| With Kidney Damage ?| ?Without Kidney Damage+ --------+ --------+ +| ?>90 ?| ?Stage one ?| ? Normal ?+ ---+ ---+ -------+| ?60-89 ?| ?Stage two ?| ? Decreased GFR ? + --+ --+ ------+| ?30-59 ?| ?Stage three ?| ? Stage three ? + --+ --+ ------+| ?15-29 ?| ?Stage four ? | ? Stage four ?+ ---+ ---+ -------+| ?<15 (or dialysis) ? ?| ?Stage five ? | ? Stage five ?+ ---+ ---+ -------+ *Each stage assumes the associated GFR level has been in effect for at least three months. ?Stages 1 to 5, with or without kidney disease, indicate chronic kidney disease. Notes: Determination of stages one and two (with eGFR >59mL/min/1.73 m2) requires estimation of kidney damage for at least three months as defined by structural or functional abnormalities of the kidney, manifested by either:Pathological abnormalities or Markers of kidney damage (including abnormalities in the composition of the blood or urine or abnormalities in imaging tests). Lab Interpretation (test code = 22877-3) Abnormal [facility] WITH [id number] 11:19:13* Test Item Value Reference Range Interpretation Comme nts WBC (test code = 6690-2) 10.09 See_Comment [Automated [employer]] The system which generated this result transmitted reference range: 4.20 - 10.70 10*3/?L. The reference range was not used to interpret this result as normal/abnormal. RBC (test code = 789-8) 2.95 See_Comment L [Automated [employer] ge] The system which generated this result transmitted reference range: 4.26 - 5.52 10*6/?L. The reference range was not used to interpret this result as normal/abnormal. HGB (test code = 718-7) 10.1 g/dL 12.2-16.4 L HCT (test code = 4544-3) 29.5 % 38.4-49.3 L MCV (test code = 787-2) 100.0 fL 81.7-95.6 H MCH (test code = 785-6) 34.2 pg 26.1-32.7 H MCHC (test code = 786-4) 34.2 g/dL 31.2-35.0 RDW-SD (test code = 61837-0) 44.0 fL 38.5-51.6 RDW-CV (test code = 788-0) 11.9 % 12.1-15.4 L PLT (test code = 777-3) 179 See_Comment [Automated [employer]] The system which generated this result transmitted reference range: 150 - 328 10*3/?L. The reference range was not used to interpret this result as normal/abnormal. MPV (test code = 68932-3) 10.0 fL 9.8-13.0 NRBC/100 WBC (test code = 7970168108) 0.0 See_Comment [Automated [employer] ssage] The system which generated this result transmitted reference range: 0.0 - 10.0 /100 WBCs. The reference range was not used to interpret this result as normal/abnormal. NRBC x10^3 (test code = 2626543778) See_Comment [Automated messa ge] The system which generated this result transmitted reference range: 10*3/?L. The reference range was not used to interpret this result as normal/abnormal. GRAN MAT (NEUT) % (test code = 770-8) 71.9 % IMM GRAN % (test code = 4027236100) 0.60 % LYMPH % (test code = 736-9) 8.8 % MONO % (test code = 5905-5) 18.1 % EOS % (test code = 713-8) 0.4 % BASO % (test code = 706-2) 0.2 % GRAN MAT x10^3(ANC) (test code = 7015842593) 7.25 10*3/uL 1.99-6.95 H IMM GRAN x10^3 (test code = 7091488510) 0.06 10*3/uL 0.00-0.06 LYMPH x10^3 (test code = 731-0) 0.89 10*3/uL 1.09-3.23 L MONO x10^3 (test code = 742-7) 1.83 10*3/uL 0.36-1.02 H EOS x10^3 (test code = 711-2) 0.04 10*3/uL 0.06-0.53 L BASO x10^3 (test code = 704-7) 0.01-0.09 Lab Interpretation (test code = 45466-0) Abnormal [facility] GLUCOSE (AUTOMATED)2022-07-22 19:07:48* Test Item Value Reference Range Interpretation Comme nts POCT GLU (test code = 0205257308) 166 mg/dL 70-110 H Lab Interpretation (test cod e = 34156-8) Abnormal [facility] GLUCOSE (AUTOMATED)2022-07-22 19:07:48* Test Item Value Reference Range Interpretation Comme nts POCT GLU (test code = 5345191621) 166 mg/dL 70-110 H Lab Interpretation (test cod e = 62876-0) [facility]21:[facility]* Test Item Value Reference Range Interpretation Comme nts NA (test code = 2278052047) 139 mmol/L 135-145 Lab Interpretation (test cod e = 41302-8) [facility] 22:21:42* Test Item Value Reference Range Interpretation Comme nts NA (test code = 4290594750) 139 mmol/L 135-145 Lab Interpretation (test cod e = 87792-6) Normal [facility], [id number] 20:44:58* Test Item Value Reference Range Interpretation Comme nts AMMONIA (test code = 8276930848) 9-33 L Lab Interpretation (test cod e = 17376-5) Abnormal [facility], [id number] 20:44:58* Test Item Value Reference Range Interpretation Comme nts AMMONIA (test code = 8993880350) 9-33 L Lab Interpretation (test cod e = 13376-7) [facility]23232[facility] (ALB,T.PRO,BILI T,BU/BC,ALT,AST,ALK PHOS)2022-07-20 19:54:33* Test Item Value Reference Range Interpretation Comme nts TOTAL BILI (test code = 2757566806) 1.5 mg/dL 0.1-1.1 H BILI UNCON (test code = 4739532162) 1.2 mg/dL 0.1-1.1 H BILI CONJ (test code = 0788646580) 0.0 mg/dL 0.0-0.3 T PROTEIN (test code = 7155726280) 6.0 g/dL 6.3-8.2 L ALBUMIN (test code = 8479335863) 3.0 g/dL 3.5-5.0 L ALK PHOS (test code = 0569833680) 34 U/L 34-122 ALTv (test code = 1742-6) 34 U/L 5-50 AST(SGOT) (test code = 5869821001) 33 U/L 13-40 Lab Interpretation (test cod e = 16278-3) [facility]82807[facility] (ALB,T.PRO,BILI T,BU/BC,ALT,AST,ALK PHOS)2022-07-20 19:54:33* Test Item Value Reference Range Interpretation Comme nts TOTAL BILI (test code = 0582971863) 1.5 mg/dL 0.1-1.1 H BILI UNCON (test code = 5614413397) 1.2 mg/dL 0.1-1.1 H BILI CONJ (test code = 1793834139) 0.0 mg/dL 0.0-0.3 T PROTEIN (test code = 0388032569) 6.0 g/dL 6.3-8.2 L ALBUMIN (test code = 2168994886) 3.0 g/dL 3.5-5.0 L ALK PHOS (test code = 3933554578) 34 U/L 34-122 ALTv (test code = 1742-6) 34 U/L 5-50 AST(SGOT) (test code = 4163904248) 33 U/L 13-40 Lab Interpretation (test cod e = 25838-7) Abnormal [facility] (69050) (ALB,T.PRO,BILI T,BU/BC,ALT,AST,ALK PHOS)2022-07-20 19:54:33* Test Item Value Reference Range Interpretation Comme nts TOTAL BILI (test code = 1035469510) 1.5 mg/dL 0.1-1.1 H BILI UNCON (test code = 8020970655) 1.2 mg/dL 0.1-1.1 H BILI CONJ (test code = 9358018662) 0.0 mg/dL 0.0-0.3 T PROTEIN (test code = 0885063886) 6.0 g/dL 6.3-8.2 L ALBUMIN (test code = 3317259083) 3.0 g/dL 3.5-5.0 L ALK PHOS (test code = 7290748442) 34 U/L 34-122 ALTv (test code = 1742-6) 34 U/L 5-50 AST(SGOT) (test code = 5233524873) 33 U/L 13-40 Lab Interpretation (test cod e = 84928-8) [facility] 18:21:38* Test Item Value Reference Range Interpretation Comme nts NA (test code = 7999503384) 131 mmol/L 135-145 L Lab Interpretation (test cod e = 90465-3) [facility]* Test Item Value Reference Range Interpretation Comme nts NA (test code = 2079319512) 131 mmol/L 135-145 L Lab Interpretation (test cod e = 56694-8) Abnormal [facility]2023-06-07 18:21:38* Test Item Value Reference Range Interpretation Comme nts NA (test code = 1647526847) 131 mmol/L 135-145 L Lab Interpretation (test cod e = 86639-5) [facility]normal [facility] / [id number] 16:37:19* Test Item Value Reference Range Interpretation Comme nts PROTIME PATIENT (test code = 5964-2) 12.5 See_Comment [Automated messa ge] The system which generated this result transmitted reference range: 10.1 - 12.6 Seconds. The reference range was not used to interpret this result as normal/abnormal. INR (test code = 6301-6) 1.1 Normal INR <1.1; Warfarin Therapeutic range 2.0 to 3.0 or 2.5 to 3.5, depending upon the indications. Lab Interpretation (test code = 43447-9) [facility] 16:37:19* Test Item Value Reference Range Interpretation Comme nts APTT Patient (test code = 3173-2) 32 See_Comment [Automated messa ge] The system which generated this result transmitted reference range: 26 - 36 Seconds. The reference range was not used to interpret this result as normal/abnormal. Lab Interpretation (test code = 52006-8) Normal [facility] / [id number] 16:37:19* Test Item Value Reference Range Interpretation Comme nts PROTIME PATIENT (test code = 5964-2) 12.5 See_Comment [Automated messa ge] The system which generated this result transmitted reference range: 10.1 - 12.6 Seconds. The reference range was not used to interpret this result as normal/abnormal. INR (test code = 6301-6) 1.1 Normal INR <1.1; Warfarin Therapeutic range 2.0 to 3.0 or 2.5 to 3.5, depending upon the indications. Lab Interpretation (test code = 72863-1) Normal [facility] 16:37:19* Test Item Value Reference Range Interpretation Comme nts APTT Patient (test code = 3173-2) 32 See_Comment [Automated messa ge] The system which generated this result transmitted reference range: 26 - 36 Seconds. The reference range was not used to interpret this result as normal/abnormal. Lab Interpretation (test code = 44691-0) Normal [facility] / [id number] 16:37:19* Test Item Value Reference Range Interpretation Comme nts PROTIME PATIENT (test code = 5964-2) 12.5 See_Comment [Automated messa ge] The system which generated this result transmitted reference range: 10.1 - 12.6 Seconds. The reference range was not used to interpret this result as normal/abnormal. INR (test code = 6301-6) 1.1 Normal INR <1.1; Warfarin Therapeutic range 2.0 to 3.0 or 2.5 to 3.5, depending upon the indications. Lab Interpretation (test code = 75273-3) Normal [facility] 16:37:19* Test Item Value Reference Range Interpretation Comme nts APTT Patient (test code = 3173-2) 32 See_Comment [Automated messa ge] The system which generated this result transmitted reference range: 26 - 36 Seconds. The reference range was not used to interpret this result as normal/abnormal. Lab Interpretation (test code = 13392-2) Normal [facility] - ONCE [id number] 16:29:00 * Test Item Value Reference Range Interpretation Comme nts ABO & RH (test code = 20) A POSITIVE IAT (test code = 1185) Negative [facility] and Screen - ONCE [id number] 16:29:00 * Test Item Value Reference Range Interpretation Comme nts ABO & RH (test code = 20) A POSITIVE IAT (test code = 1185) Negative [facility] and Screen - ONCE [id number] 16:29:00 * Test Item Value Reference Range Interpretation Comme nts ABO & RH (test code = 20) A POSITIVE IAT (test code = 1185) Negative [place] [address]-06-07 13:37:31* Test Item Value Reference Range Interpretation Comme nts NA (test code = 5338499537) 131 mmol/L 135-145 L Lab Interpretation (test cod e = 32495-6) Abnormal [address]06-07 13:37:31* Test Item Value Reference Range Interpretation Comme nts NA (test code = 6768624680) 131 mmol/L 135-145 L Lab Interpretation (test cod e = 42384-4) Abnormal [address]06-07 13:37:31* Test Item Value Reference Range Interpretation Comme nts NA (test code = 0939466442) 131 mmol/L 135-145 L Lab Interpretation (test cod e = 07514-2) Abnormal [address]06-06 23:40:14* Test Item Value Reference Range Interpretation Comme nts NA (test code = 9637636118) 139 mmol/L 135-145 Lab Interpretation (test cod e = 10806-8) Normal [address]06-06 23:40:14* Test Item Value Reference Range Interpretation Comme nts NA (test code = 8867176312) 139 mmol/L 135-145 Lab Interpretation (test cod e = 94297-3) Normal [address]06-06 23:40:14* Test Item Value Reference Range Interpretation Comme nts NA (test code = 2675602955) 139 mmol/L 135-145 Lab Interpretation (test cod e = 26078-6) Normal [address]06-06 15:22:53* Test Item Value Reference Range Interpretation Comme nts NA (test code = 5726004186) 139 mmol/L 135-145 Lab Interpretation (test cod e = 45494-4) Normal [address]06-06 15:22:53* Test Item Value Reference Range Interpretation Comme nts NA (test code = 2351573489) 139 mmol/L 135-145 Lab Interpretation (test cod e = 88861-0) Normal [address]06-06 15:22:53* Test Item Value Reference Range Interpretation Comme nts NA (test code = 5561300075) 139 mmol/L 135-145 Lab Interpretation (test cod e = 64305-5) Normal [facility]2023-06-04 23:11:10* Test Item Value Reference Range Interpretation Comme nts NA (test code = 6192027090) 133 mmol/L 135-145 L Lab Interpretation (test cod e = 89892-7) Abnormal [facility]2023-06-04 23:11:10* Test Item Value Reference Range Interpretation Comme nts NA (test code = 2180230826) 133 mmol/L 135-145 L Lab Interpretation (test cod e = 48312-7) Abnormal [facility]2023-06-04 23:11:10* Test Item Value Reference Range Interpretation Comme nts NA (test code = 1596442596) 133 mmol/L 135-145 L Lab Interpretation (test cod e = 94123-1) Abnormal [facility]2023-06-04 19:49:23* Test Item Value Reference Range Interpretation Comme nts NA (test code = 6252704839) 130 mmol/L 135-145 L Lab Interpretation (test cod e = 44131-2) Abnormal [facility]2023-06-04 19:49:23* Test Item Value Reference Range Interpretation Comme nts NA (test code = 3660391156) 130 mmol/L 135-145 L Lab Interpretation (test cod e = 80931-2) Abnormal [facility]2023-06-04 19:49:23* Test Item Value Reference Range Interpretation Comme nts NA (test code = 3915812297) 130 mmol/L 135-145 L Lab Interpretation (test cod e = 88910-9) [facility]normal [facility] ([facility] Only)2022-07-17 04:18:00* Test Item Value Reference Range Interpretation Comme nts ABO & RH (test code = 20) A Positive [facility] Only[facility]2022-07-17 04:18:00* Test Item Value Reference Range Interpretation Comme nts ABO & RH (test code = 20) A Positive [facility] (Lab Only)2022-07-17 04:18:00* Test Item Value Reference Range Interpretation Comme nts ABO & RH (test code = 20) A Positive [facility] (NA, K, CL, CO2, GLUCOSE, BUN, CREATININE, CA)2022-07-17 02:26:10* Test Item Value Reference Range Interpretation Zach bragg NA (test code = 2980109612) 128 mmol/L 135-145 L K (test code = 8328665394) 3.6 mmol/L 3.5-5.0 CL (test code = 4338646789) 95 mmol/L 98-108 L CO2 TOTAL (test code = 3076934969) 21 mmol/L 23-31 L AGAP (test code = 9267618786) 12 2-16 BUN (test code = 9932445630) 5 mg/dL 7-23 L GLUCOSE (test code = 2754809071) 121 mg/dL 70-110 H CREATININE (test code = 9927556364) 0.62 mg/dL 0.60-1.25 CALCIUM (test code = 0176208667) 8.4 mg/dL 8.6-10.6 L eGFR (test code = 1527235299) 131.9 mL/min/1.73m2 TOMY (test code = TOMY) Association of Glomerular Filtration Rate (GFR) and Staging of Kidney Disease* + --+ --+ ------+| GFR (mL/min/1.73 m2) ?| With Kidney Damage ?| ?Without Kidney Damage+ --------+ --------+ +| ?>90 ?| ?Stage one ?| ? Normal ?+ ---+ ---+ -------+| ?60-89 ?| ?Stage two ?| ? Decreased GFR ? + --+ --+ ------+| ?30-59 ?| ?Stage three ?| ? Stage three ? + --+ --+ ------+| ?15-29 ?| ?Stage four ? | ? Stage four ?+ ---+ ---+ -------+| ?<15 (or dialysis) ? ?| ?Stage five ? | ? Stage five ?+ ---+ ---+ -------+ *Each stage assumes the associated GFR level has been in effect for at least three months. ?Stages 1 to 5, with or without kidney disease, indicate chronic kidney disease. Notes: Determination of stages one and two (with eGFR >59mL/min/1.73 m2) requires estimation of kidney damage for at least three months as defined by structural or functional abnormalities of the kidney, manifested by either:Pathological abnormalities or Markers of kidney damage (including abnormalities in the composition of the blood or urine or abnormalities in imaging tests). Lab Interpretation (test code = 97339-3) Abnormal [facility] Metabolic Panel (NA, K, CL, CO2, GLUCOSE, BUN, CREATININE, CA)2022-07-17 02:26:10* Test Item Value Reference Range Interpretation Comme nts NA (test code = 1828026889) 128 mmol/L 135-145 L K (test code = 5001120928) 3.6 mmol/L 3.5-5.0 CL (test code = 8685571184) 95 mmol/L 98-108 L CO2 TOTAL (test code = 6894867553) 21 mmol/L 23-31 L AGAP (test code = 7452161910) 12 2-16 BUN (test code = 2782129587) 5 mg/dL 7-23 L GLUCOSE (test code = 3669150026) 121 mg/dL 70-110 H CREATININE (test code = 6400825135) 0.62 mg/dL 0.60-1.25 CALCIUM (test code = 6441950364) 8.4 mg/dL 8.6-10.6 L eGFR (test code = 4522019328) 131.9 mL/min/1.73m2 TOMY (test code = TOMY) Association of Glomerular Filtration Rate (GFR) and Staging of Kidney Disease* + --+ --+ ------+| GFR (mL/min/1.73 m2) ?| With Kidney Damage ?| ?Without Kidney Damage+ --------+ --------+ +| ?>90 ?| ?Stage one ?| ? Normal ?+ ---+ ---+ -------+| ?60-89 ?| ?Stage two ?| ? Decreased GFR ? + --+ --+ ------+| ?30-59 ?| ?Stage three ?| ? Stage three ? + --+ --+ ------+| ?15-29 ?| ?Stage four ? | ? Stage four ?+ ---+ ---+ -------+| ?<15 (or dialysis) ? ?| ?Stage five ? | ? Stage five ?+ ---+ ---+ -------+ *Each stage assumes the associated GFR level has been in effect for at least three months. ?Stages 1 to 5, with or without kidney disease, indicate chronic kidney disease. Notes: Determination of stages one and two (with eGFR >59mL/min/1.73 m2) requires estimation of kidney damage for at least three months as defined by structural or functional abnormalities of the kidney, manifested by either:Pathological abnormalities or Markers of kidney damage (including abnormalities in the composition of the blood or urine or abnormalities in imaging tests). Lab Interpretation (test code = 27254-5) Abnormal [facility] Metabolic Panel (NA, K, CL, CO2, GLUCOSE, BUN, CREATININE, CA)2022-07-17 02:26:10* Test Item Value Reference Range Interpretation Comme nts NA (test code = 1164034150) 128 mmol/L 135-145 L K (test code = 7533403307) 3.6 mmol/L 3.5-5.0 CL (test code = 6935906966) 95 mmol/L 98-108 L CO2 TOTAL (test code = 6601703842) 21 mmol/L 23-31 L AGAP (test code = 3078745797) 12 2-16 BUN (test code = 1230524023) 5 mg/dL 7-23 L GLUCOSE (test code = 7692226798) 121 mg/dL 70-110 H CREATININE (test code = 7857286445) 0.62 mg/dL 0.60-1.25 CALCIUM (test code = 0596665353) 8.4 mg/dL 8.6-10.6 L eGFR (test code = 5272872376) 131.9 mL/min/1.73m2 TOMY (test code = TOMY) Association of Glomerular Filtration Rate (GFR) and Staging of Kidney Disease* + --+ --+ ------+| GFR (mL/min/1.73 m2) ?| With Kidney Damage ?| ?Without Kidney Damage+ --------+ --------+ +| ?>90 ?| ?Stage one ?| ? Normal ?+ ---+ ---+ -------+| ?60-89 ?| ?Stage two ?| ? Decreased GFR ? + --+ --+ ------+| ?30-59 ?| ?Stage three ?| ? Stage three ? + --+ --+ ------+| ?15-29 ?| ?Stage four ? | ? Stage four ?+ ---+ ---+ -------+| ?<15 (or dialysis) ? ?| ?Stage five ? | ? Stage five ?+ ---+ ---+ -------+ *Each stage assumes the associated GFR level has been in effect for at least three months. ?Stages 1 to 5, with or without kidney disease, indicate chronic kidney disease. Notes: Determination of stages one and two (with eGFR >59mL/min/1.73 m2) requires estimation of kidney damage for at least three months as defined by structural or functional abnormalities of the kidney, manifested by either:Pathological abnormalities or Markers of kidney damage (including abnormalities in the composition of the blood or urine or abnormalities in imaging tests). Lab Interpretation (test code = 84234-9) Abnormal [facility] / [id number] 02:22:49* Test Item Value Reference Range Interpretation Comme [facility] PROTIME PATIENT (test code = 5964-2) 11.0 See_Comment [[employer]] The system which generated this result transmitted reference range: 10.1 - 12.6 Seconds. The reference range was not used to interpret this result as normal/abnormal. INR (test code = 6301-6) 1.0 Normal INR <1.1; Warfarin Therapeutic range 2.0 to 3.0 or 2.5 to 3.5, depending upon the indications. Lab Interpretation (test code = 07744-2) Normal [facility] 02:22:49* Test Item Value Reference Range Interpretation Comme [facility] APTT Patient (test code = 3173-2) 33 See_Comment [[employer]] The system which generated this result transmitted reference range: 26 - 36 Seconds. The reference range was not used to interpret this result as normal/abnormal. Lab Interpretation (test code = 51241-8) Normal [facility] / [id number] 02:22:49* Test Item Value Reference Range Interpretation Comme [facility] PROTIME PATIENT (test code = 5964-2) 11.0 See_Comment [Automated messa ge] The system which generated this result transmitted reference range: 10.1 - 12.6 Seconds. The reference range was not used to interpret this result as normal/abnormal. INR (test code = 6301-6) 1.0 Normal INR <1.1; Warfarin Therapeutic range 2.0 to 3.0 or 2.5 to 3.5, depending upon the indications. Lab Interpretation (test code = 28886-0) Normal [facility] 02:22:49* Test Item Value Reference Range Interpretation Comme [facility] APTT Patient (test code = 3173-2) 33 See_Comment [Automated messa ge] The system which generated this result transmitted reference range: 26 - 36 Seconds. The reference range was not used to interpret this result as normal/abnormal. Lab Interpretation (test code = 27157-3) Normal [facility] / [id number] 02:22:49* Test Item Value Reference Range Interpretation Comme [facility] PROTIME PATIENT (test code = 5964-2) 11.0 See_Comment [Automated messa ge] The system which generated this result transmitted reference range: 10.1 - 12.6 Seconds. The reference range was not used to interpret this result as normal/abnormal. INR (test code = 6301-6) 1.0 Normal INR <1.1; Warfarin Therapeutic range 2.0 to 3.0 or 2.5 to 3.5, depending upon the indications. Lab Interpretation (test code = 10890-0) [facility] Test Item Value Reference Range Interpretation Comme [facility] APTT Patient (test code = 3173-2) 33 See_Comment [Automated messa ge] The system which generated this result transmitted reference range: 26 - 36 Seconds. The reference range was not used to interpret this result as normal/abnormal. Lab Interpretation (test code = 57091-4) Normal [facility] - The Type and Screen expires at midnight on the 3rd day after it was drawn. A current Type and Screen is required when RBCs are requested. For all other blood products, a Type and Scr een performed during the current hospitalizati...2022-07-17 02:12:00* Test Item Value Reference Range Interpretation Comme nts ABO & RH (test code = 20) A POSITIVE IAT (test code = 1185) Negative [facility] - The Type and Screen expires at midnight on the 3rd day after it was drawn. A current Type and Screen is required when RBCs are requested. For all other blood products, a Type and Scr een performed during the current hospitalizati...2022-07-17 02:12:00* Test Item Value Reference Range Interpretation Comme nts ABO & RH (test code = 20) A POSITIVE IAT (test code = 1185) Negative [facility] BranchType and Screen - The Type and Screen expires at midnight on the 3rd day after it was drawn. A current Type and Screen is required when RBCs are requested. For all other blood products, a Type and Scr een performed during the current hospitalizati...2022-07-17 02:12:00* Test Item Value Reference Range Interpretation Comme nts ABO & RH (test code = 20) A POSITIVE IAT (test code = 1185) Negative [facility] / [id number] 02:11:29* Test Item Value Reference Range Interpretation Comme nts WBC (test code = 6690-2) 8.26 See_Comment [Automated message] The system which generated this result transmitted reference range: 4.20 - 10.70 10*3/?L. The reference range was not used to interpret this result as normal/abnormal. RBC (test code = 789-8) 4.26 See_Comment [Automated message] The system which generated this result transmitted reference range: 4.26 - 5.52 10*6/?L. The reference range was not used to interpret this result as normal/abnormal. HGB (test code = 718-7) 14.6 g/dL 12.2-16.4 HCT (test code = 4544-3) 40.8 % 38.4-49.3 MCH (test code = 785-6) 34.3 pg 26.1-32.7 H MCV (test code = 787-2) 95.8 fL 81.7-95.6 H MCHC (test code = 786-4) 35.8 g/dL 31.2-35.0 H PLT (test code = 777-3) 163 See_Comment [Automated message] The system which generated this result transmitted reference range: 150 - 328 10*3/?L. The reference range was not used to interpret this result as normal/abnormal. MPV (test code = 83700-5) 9.0 fL 9.8-13.0 L RDW-CV (test code = 788-0) 12.1 % 12.1-15.4 RDW-SD (test code = 58451-4) 42.4 fL 38.5-51.6 NRBC x10^3 (test code = 1040326906) See_Comment [Automated [employer] ge] The system which generated this result transmitted reference range: 10*3/?L. The reference range was not used to interpret this result as normal/abnormal. NRBC/100 WBC (test code = 2732164372) 0.0 See_Comment [Automated [employer] ge] The system which generated this result transmitted reference range: 0.0 - 10.0 /100 WBCs. The reference range was not used to interpret this result as normal/abnormal. IPF % (test code = 8766125331) Lab Interpretation (test code = 51758-6) Abnormal [facility] / [id number] 02:11:29* Test Item Value Reference Range Interpretation Comme nts WBC (test code = 6690-2) 8.26 See_Comment [Automated message] The system which generated this result transmitted reference range: 4.20 - 10.70 10*3/?L. The reference range was not used to interpret this result as normal/abnormal. RBC (test code = 789-8) 4.26 See_Comment [Automated message] The system which generated this result transmitted reference range: 4.26 - 5.52 10*6/?L. The reference range was not used to interpret this result as normal/abnormal. HGB (test code = 718-7) 14.6 g/dL 12.2-16.4 HCT (test code = 4544-3) 40.8 % 38.4-49.3 MCH (test code = 785-6) 34.3 pg 26.1-32.7 H MCV (test code = 787-2) 95.8 fL 81.7-95.6 H MCHC (test code = 786-4) 35.8 g/dL 31.2-35.0 H PLT (test code = 777-3) 163 See_Comment [Automated message] The system which generated this result transmitted reference range: 150 - 328 10*3/?L. The reference range was not used to interpret this result as normal/abnormal. MPV (test code = 48501-1) 9.0 fL 9.8-13.0 L RDW-CV (test code = 788-0) 12.1 % 12.1-15.4 RDW-SD (test code = 35137-3) 42.4 fL 38.5-51.6 NRBC x10^3 (test code = 6599258176) See_Comment [Automated Armor[employer] ge] The system which generated this result transmitted reference range: 10*3/?L. The reference range was not used to interpret this result as normal/abnormal. NRBC/100 WBC (test code = 2094492543) 0.0 See_Comment [Automated Armor5a ge] The system which generated this result transmitted reference range: 0.0 - 10.0 /100 WBCs. The reference range was not used to interpret this result as normal/abnormal. IPF % (test code = 0993815142) Lab Interpretation (test code = 60480-1) [facility] [id number] 02:11:29* Test Item Value Reference Range Interpretation Comme nts WBC (test code = 6690-2) 8.26 See_Comment [Automated message] The system which generated this result transmitted reference range: 4.20 - 10.70 10*3/?L. The reference range was not used to interpret this result as normal/abnormal. RBC (test code = 789-8) 4.26 See_Comment [Automated message] The system which generated this result transmitted reference range: 4.26 - 5.52 10*6/?L. The reference range was not used to interpret this result as normal/abnormal. HGB (test code = 718-7) 14.6 g/dL 12.2-16.4 HCT (test code = 4544-3) 40.8 % 38.4-49.3 MCH (test code = 785-6) 34.3 pg 26.1-32.7 H MCV (test code = 787-2) 95.8 fL 81.7-95.6 H MCHC (test code = 786-4) 35.8 g/dL 31.2-35.0 H PLT (test code = 777-3) 163 See_Comment [Automated message] The system which generated this result transmitted reference range: 150 - 328 10*3/?L. The reference range was not used to interpret this result as normal/abnormal. MPV (test code = 76934-3) 9.0 fL 9.8-13.0 L RDW-CV (test code = 788-0) 12.1 % 12.1-15.4 RDW-SD (test code = 08045-5) 42.4 fL 38.5-51.6 NRBC x10^3 (test code = 9251822200) See_Comment [Automated messa ge] The system which generated this result transmitted reference range: 10*3/?L. The reference range was not used to interpret this result as normal/abnormal. NRBC/100 WBC (test code = 1733449772) 0.0 See_Comment [Automated messa ge] The system which generated this result transmitted reference range: 0.0 - 10.0 /100 WBCs. The reference range was not used to interpret this result as normal/abnormal. IPF % (test code = 7823911742) Lab Interpretation (test code = 38183-2) Abnormal [facility] Notes Date/Time Note Provider Source 2022-09-13 14:54:00 Formatting of this n ote might be different from the original. Called [facility] [employer] and spoke with Justyn. Pt's number provided. Christelle Ponce RN [facility] - Health 2022-09-13 14:42:34 Formatting of this n ote might be different from the original. Elizabeth Malloy is a 61 year old male Anjelica with [employer] calling requesting patient's phone number. She states it is listed as all zeroes on her sheet. Please review and advise. t: [phone] Christy Lara [facility] 2022-09-13 08:30:00 Formatting of this n ote might be different from the original. Pt for home monitor placement. Information sent to [facility] Maggie Carter RN [facility]"
--- NOTE | 2024-05-31 11:41 | RAD REPORT ---
EXAMINATION: Ct Stroke Brain Wo Cont CLINICAL INDICATION: Male, 63 years old.STROKE ALERT TECHNIQUE: Axial CT images from the skull base to the vertex without intravenous contrast. Coronal an d sagittal reformatted images were created from the data set. One or more of the following dose reduction techniques were used: Automated exposure control, adjustment of the mA and/or kV according to patient size, and/or iterative reconstruction. Unless otherwise specified, incidental findings do not require dedicated imaging follow-up. [id number]. COMPARISON: No prior exam. FINDINGS: INTRACRANIAL: No acute intracranial hemorrhage. No hydrocephalus. No mass effect or midline shift. Mu ltiple right cerebral hemisphere infarcts are suspected which are age-indeterminate. There is a area of infarct at the medial right frontal lobe, right periventricular deep white matter, right basa l ganglia, and right occipital lobe. VASCULATURE: No visualized abnormalities in the arteries or dural venous sinuses. SCALP/SKULL: No calvarial fracture identified. No acute soft tissue abnormality. SINUSES: The visualized paranasal sinuses are mostly clear. No significant mastoid fluid. 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 THIS REPORT CONTAINS FINDINGS THAT MAY BE CRITICAL TO PATIENT CARE. The emergent findings were commun icated to Dr. Edgar on 05/31/2024 11:38 AM.
[2024-05-31 11:47] LABS: Absolute Basophils 0.1 K/uL (0-0.5); Absolute Eosinophils 0.4 K/uL (0-0.5); Absolute Lymphocytes (CBC) 2.4 K/uL (0.7-4.9); Absolute Monocytes 1.2 K/uL (0.1-1.3); Basophils % 1.2 % (0-1.3); Eosinophils % 2.9 % (0-4.4); Hematocrit 46.6 % (39.6-49.0); Hemoglobin 16.8 g/dL (13.6-17.9); MCH 32.9 pg (27.0-35.0); MCV 91.3 fL (80-100); MPV 8.1 fL (7.6-11.3); Monocytes % 9.7 % (3.3-12.3); Neutrophils % 66.2 % (41.7-73.7); Nucleated Red Blood Cells % 0.1 % (0-0); Platelets 278 thou/uL (152-406); RBC Red Blood Cell Count 5.11 M/uL (4.33-5.43)
--- NOTE | 2024-05-31 11:47 | RAD REPORT ---
EXAMINATION: Neck Angio CLINICAL INDICATION: Male, 63 years old. NUMBNESS TECHNIQUE: Axial CT images were obtained from the aortic arch to the skull base after intravenous con trast utilizing angiographic protocol with 3D post-processing (maximum intensity projection images, volume rendered images and/or shaded surface rendered images). One or more of the following dose redu ction techniques were used: Automated exposure control, adjustment of the mA and/or kV according to patient size, and/or iterative reconstruction. Unless otherwise specified, incidental findings do not require dedicated imaging follow-up. [id number]. NASCET criteria used. Mild 0-49% stenosis Moderate 50-69% stenosis Severe 70-99% stenosis COMPARISON: No prior exam. FINDINGS: AORTA: Not included in the field of view. RIGHT: - CCA: Atherosclerotic changes but no flow limiting stenosis. - ICA: Atherosclerotic changes but no flow limiting stenosis. - ECA: Patent LEFT: - CCA: The proximal CCA is not included in the [id number]. The mid and distal common carotid arter y are patent though with some atherosclerotic plaque. - ICA: Atherosclerotic changes but no flow limiting stenosis. - ECA: Patent VERTEBRAL: Patent SOFT TISSUE: No significant neck soft tissue abnormalities. The visualized lung apices are clear. 3D images confirm these findings. IMPRESSION: No arterial dissection or stenosis identified within the neck. Atherosclerotic changes present bilate rally. Note that the left common carotid artery, right brachiocephalic artery, and aortic arch were not included in the [id number].
--- NOTE | 2024-05-31 11:55 | RAD REPORT ---
EXAMINATION: Head angio CLINICAL INDICATION: Male, 63 years old. HEMIPLEGIA TECHNIQUE: Axial CT images were obtained through the head after intravenous contrast utilizing angiog raphic protocol with 3D post-processing (maximum intensity projection images, volume rendered images and/or shaded surface rendered images). One or more of the following dose reduction technique s were used: Automated exposure control, adjustment of the mA and/or kV according to patient size, and/or iterative reconstruction. Unless otherwise specified, incidental findings do not require dedic ated imaging follow-up. COMPARISON: No prior exam. FINDINGS: RIGHT: ICA: Moderately narrowed left cavernous and supraclinoid ICA secondary to calcified plaque. DEEPAK: Patent MCA: Patent GLUE MOUNTER OPERATOR: Patent. origin on the right. LEFT: ICA: Heavily calcified left cavernous and supraclinoid ICA which has a moderate to severe stenosis. DEEPAK: Patent MCA: Patent GLUE MOUNTER OPERATOR: Patent Vertebrobasilar: High-grade focal stenosis of the right vertebral artery as it pierces the dura. The left vertebral artery is patent. The basilar artery is patent. 3D images confirm these findings. IMPRESSION: Heavily calcified bilateral ICAs with likely moderate right and moderate to severe left ICA stenoses. No acute large vessel occlusion. No aneurysm identified.
[2024-05-31 12:02] LABS: PT Prothrombin Time 11.9 SECONDS (10-13.0); Protime INR 1.05
--- NOTE | 2024-05-31 12:05 | ER ---
Nurse's Notes [facility] Name: Alejandro Newton Age: 63 yrs Sex: Male : 1960 Arrival Date: 05/31/2024 Time: 10:07 Bed 10 Private MD: Diagnosis: Dysarthria following cerebral infarction Presentation: 05/31 10:52 Chief complaint: Patient states: Left arm weakness, slurred speech, left mouth droop ld1 since Monday. Pt reports feeling tired with dizziness. Coronavirus screen: At this time, the client does not indicate any symptoms associated with coronavirus-19. Ebola Screen: No symptoms or risks identified at this time. Initial Sepsis Screen: Does the patient meet any 2 criteria? No. Patient's initial sepsis screen is negative. Does the patient have a suspected source of infection? No. Patient's initial sepsis screen is negative. Risk Assessment: Do you want to hurt yourself or someone else? Patient reports no desire to harm self or others. Onset of symptoms was May 31, 2024 at 10:53. 10:52 Method Of Arrival: Ambulatory ld1 10:52 Acuity: TUAN 2 ld1 Triage Assessment: 10:52 The onset of the patients symptoms was May 29, 2024 at 17:00. General: Appears in no ld1 apparent distress. comfortable, Behavior is calm, cooperative, appropriate for age. Pain: Denies pain. EENT: No signs and/or symptoms were reported regarding the EENT system. Neuro: Level of Consciousness is awake, alert, obeys commands, Oriented to person, place, time, situation, City Secretary are equal bilaterally Moves all extremities. Gait is steady, Speech is slurred, Facial droop on left, Pupils are PERRLA. Cardiovascular: Capillary refill < 3 seconds Patient's skin is warm and dry. Respiratory: Airway is patent Respiratory effort is even, unlabored. GI: Abdomen is round obese. : No signs and/or symptoms were reported regarding the genitourinary system. Derm: No signs and/or symptoms reported regarding the dermatologic system. Musculoskeletal: No signs and/or symptoms reported regarding the musculoskeletal system. Historical: - Allergies: 10:51 No Known Allergies; ld1 - PMHx: 10:51 Atrial fibrillation; ld1 - PSHx: 10:51 Broken back; ld1 - Immunization history:: Adult Immunizations up to date. - Infectious Disease History:: Denies. - Social history:: Smoking status: Patient reports the use of cigarette tobacco products, smokes one-half pack cigarettes per day. - History obtained from: friend. Screenin:40 [facility] ED Fall Risk Assessment (Adult) History of falling in the last 3 months, jb4 including since admission No falls in past 3 months (0 pts) Confusion or Disorientation No (0 pts) Intoxicated or Sedated No (0 pts) Impaired Gait No (0 pts) Mobility Assist Device Used No (0 pt) Altered Elimination Yes (1 pt) Score/Fall Risk Level 0 - 2 = Low Risk. 16:15 Abuse screen: Denies threats or abuse. Nutritional screening: No deficits noted. jb4 Tuberculosis screening: No symptoms or risk factors identified. Assessment: 12:21 Reassessment: Patient appears in no apparent distress at this time. Patient and/or jb4 family updated on plan of care and expected duration. Pain level reassessed. Patient is alert, oriented x 3, equal unlabored respirations, skin warm/dry/pink. 13:41 Reassessment: Patient appears in no apparent distress at this time. Patient and/or jb4 family updated on plan of care and expected duration. Pain level reassessed. Patient is alert, oriented x 3, equal unlabored respirations, skin warm/dry/pink. 15:20 Reassessment: Patient appears in no apparent distress at this time. Patient and/or jb4 family updated on plan of care and expected duration. Pain level reassessed. Patient is alert, oriented x 3, equal unlabored respirations, skin warm/dry/pink. 16:30 Reassessment: Patient appears in no apparent distress at this time. Patient and/or jb4 family updated on plan of care and expected duration. Pain level reassessed. Patient is alert, oriented x 3, equal unlabored respirations, skin warm/dry/pink. 17:32 Reassessment: Patient appears in no apparent distress at this time. Patient and/or jb4 family updated on plan of care and expected duration. Pain level reassessed. Patient is alert, oriented x 3, equal unlabored respirations, skin warm/dry/pink. Vital Signs: 10:52 BP 193 / 93; Pulse 64; Resp 18; Temp 97.1(TE); Pulse Ox 99% on R/A; Weight 90.72 kg; ld1 Height 6 ft. 0 in. ; Pain 0/10; 12:30 BP 204 / 90; Pulse 56; Resp 16; Pulse Ox 96% on R/A; jb4 13:41 BP 208 / 97; Pulse 57; Resp 16; Pulse Ox 97% on R/A; jb4 15:20 BP 153 / 72; Pulse 66; Resp 16; Pulse Ox 97% on R/A; jb4 16:15 BP 150 / 85; Pulse 51; Resp 16; Pulse Ox 95% on R/A; jb4 10:52 Body Mass Index 27.12 (90.72 kg, 182.88 cm) ld1 10:52 Pain Scale: Adult ld1 ED Course: 10:08 Patient arrived in ED. im 10:31 Angeline Edgar MD is Attending Physician. gb1 10:52 Arm band placed on right wrist. ld1 10:53 Triage completed. ld1 11:30 CT Stroke Brain w/o Contrast In Process Unspecified. EDMS 11:30 Luca Pool, KRISTAL is Primary Nurse. bp 11:37 CT Head Angio In Process Unspecified. EDMS 11:37 CT Neck Angio In Process Unspecified. EDMS 12:03 Beto Reyes is Hospitalizing Provider. gb1 12:13 Stroke CXR 1 View In Process Unspecified. EDMS 12:40 Patient has correct armband on for positive identification. Bed in low position. Call jb4 light in reach. Side rails up X 1. 12:41 No provider procedures requiring assistance completed. Inserted saline lock: 20 gauge jb4 in right antecubital area, using aseptic technique. ,using aseptic technique. Started by ED staff prior to 1200 Patient admitted, IV remains in place. 16:15 Provided Education on: need for admit. jb4 Administered Medications: 12:20 Drug: Eliquis PO 5 mg PO Per protocol; 5mg PO BID Route: PO; jb4 13:51 Follow up: Response: No adverse reaction jb4 12:30 Not Given (Hemodynamic Parameters): metoprolol5 mg IVP once; Hold for SBP <100 or HR jb4 <60. 12:30 Drug: hydrALAZINE IVP 10 mg IVP once Route: IVP; Site: right antecubital; jb4 13:51 Follow up: Response: No adverse reaction jb4 13:51 Drug: cloNIDine PO 0.3 mg PO once Route: PO; jb4 Medication: 16:15 VIS not applicable for this client. jb4 Outcome: 12:04 Decision to Hospitalize by Provider. gb1 16:15 Admitted to Med/surg accompanied by nurse, via wheelchair, room 219, with chart, jb4 16:15 Condition: stable 16:15 Discharge instructions given to patient, Instructed on the need for admit, Demonstrated understanding of instructions, 17:34 Patient left the ED. jb4 Signatures: Dispatcher [employer] EDMS Alejandro Willis RN RN jb4 Luca Pool RN RN Xochitl Torres RN RN ld1 Анна Cee Gina, MD MD gb1 Corrections: (The following items were deleted from the chart) 10:58 10:52 Chief complaint: Patient states: Left arm weakness, slurred speech, left mouth ld1 droop since Monday. ld1
--- NOTE | 2024-05-31 12:05 | EDPHYS ---
Physician Documentation [facility] Name: Alejandro Newton Age: 63 yrs Sex: Male : 1960 Arrival Date: 05/31/2024 Time: 10:07 Bed 10 Private MD: ED Physician Angeline Edgar HPI: 05/31 12:07 This 63 yrs old Male presents to ER via Ambulatory with complaints of Slurred gb1 Speech, Weakness - left arm. 12:07 63-year-old male with history of a slurred speech and weakness of the left gb1 upper extremity for 2 days. Patient states that he just does not "feel right". He feels like his left upper extremity is heavy and that the side of his left face is down when he talks. 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 He has atrial fibrillation history no anticoagulation. He does smoke a half a pack to a pack of cigarettes per day and has been doing that since his age of [age] years old. Patient does not see a doctor on a regular basis. 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 Historical: - Allergies: 10:51 No Known Allergies; ld1 - PMHx: 10:51 Atrial fibrillation; ld1 - PSHx: 10:51 Broken back; ld1 - Immunization history:: Adult Immunizations up to date. - Infectious Disease History:: Denies. - Social history:: Smoking status: Patient reports the use of cigarette tobacco products, smokes one-half pack cigarettes per day. - History obtained from: friend. Exam: 12:07 Constitutional: This is a well developed, well nourished patient who is awake, alert, gb1 and in no acute distress. Eyes: Pupils equal round and reactive to light, extra-ocular motions intact. Lids and lashes normal. Conjunctiva and sclera are non-icteric and not injected. Cornea within normal limits. Periorbital areas with no swelling, redness, or edema. ENT: Nares patent. No nasal discharge, no septal abnormalities noted. Tympanic membranes are normal and external auditory canals are clear. Oropharynx with no redness, swelling, or masses, exudates, or evidence of obstruction, uvula midline. Mucous membranes moist. Neck: Trachea midline, no thyromegaly or masses palpated, and no cervical lymphadenopathy. Supple, full range of motion without nuchal rigidity, or vertebral point tenderness. No Meningismus. Chest/axilla: Normal chest wall appearance and motion. Nontender with no deformity. No lesions are appreciated. Cardiovascular: Regular rate and rhythm with a normal S1 and S2. No gallops, murmurs, or rubs. Normal PMI, no JVD. No pulse deficits. Respiratory: Lungs have equal breath sounds bilaterally, clear to auscultation and percussion. No rales, rhonchi or wheezes noted. No increased work of breathing, no retractions or nasal flaring. Abdomen/GI: Soft, non-tender, with normal bowel sounds. No distension or tympany. No guarding or rebound. No evidence of tenderness throughout. Skin: Warm, dry with normal turgor. Normal color with no rashes, no lesions, and no evidence of cellulitis. Neuro: Awake and alert, GCS 15, oriented to person, place, time, and situation. Cranial nerves II-XII grossly intact. Motor strength 3 out of 5 left upper extremity 5 out of 5 in the right upper extremity.. Patient has decreased sensation in the left face and left upper extremity.. Cerebellar exam normal. Normal gait. Vital Signs: 10:52 BP 193 / 93; Pulse 64; Resp 18; Temp 97.1(TE); Pulse Ox 99% on R/A; Weight 90.72 kg; ld1 Height 6 ft. 0 in. ; Pain 0/10; 12:30 BP 204 / 90; Pulse 56; Resp 16; Pulse Ox 96% on R/A; jb4 13:41 BP 208 / 97; Pulse 57; Resp 16; Pulse Ox 97% on R/A; jb4 15:20 BP 153 / 72; Pulse 66; Resp 16; Pulse Ox 97% on R/A; jb4 16:15 BP 150 / 85; Pulse 51; Resp 16; Pulse Ox 95% on R/A; jb4 10:52 Body Mass Index 27.12 (90.72 kg, 182.88 cm) ld1 10:52 Pain Scale: Adult ld1 MDM: 10:52 Medical Screening Exam initiated gb1 12:06 Data reviewed: vital signs, nurses notes, radiologic studies, CT scan, MRI. ED course: gb1 63-year-old male with aphasia and left-sided facial droop and upper extremity weakness for 2 days. He is outside of the window for TNK. He has a elevated blood pressure today with a history of atrial fibrillation and not on any anticoagulation and a heavy smoker. CT brain stroke shows multiple age indeterminant right cerebral hemisphere infarcts which are in several vascular distributions. CTA is negative for LVO. I consulted Dr. Umana and spoke to him by phone at 12:05 PM. MRI is pending and will start Eliquis 5 mg p.o. twice daily and admit him to the hospitalist in the telemetry unit Dr. Reyes is excepting.. 16:10 ED course: pt refused pain or anxiety medication prior to MRI, which was offered to him gb1 prior to being transferred to MRI for his radiological study. Pt got to MRI and refused the study.. 05/31 11:17 Order name: Basic Metabolic Panel; Complete Time: 12:21 gb1 05/31 11:17 Order name: CBC with Diff; Complete Time: 11:59 gb1 05/31 11:17 Order name: High Sensitivity Troponin; Complete Time: 12:21 gb1 05/31 11:17 Order name: Magnesium; Complete Time: 12:21 gb1 05/31 11:17 Order name: Protime (+inr); Complete Time: 12:21 gb1 05/31 11:17 Order name: Ptt, Activated; Complete Time: 12:21 gb1 05/31 12:00 Order name: CREATININE WHOLE BLOOD; Complete Time: 12:21 EDMS 05/31 12:57 Order name: Basic Metabolic Panel EDMS 05/31 12:57 Order name: Basic Metabolic Panel EDMS 05/31 12:57 Order name: Basic Metabolic Panel EDMS 05/31 12:57 Order name: Basic Metabolic Panel EDMS 05/31 12:57 Order name: CBC with Automated Diff EDMS 05/31 12:57 Order name: CBC with Automated Diff EDMS 05/31 12:57 Order name: CBC with Automated Diff EDMS 05/31 12:57 Order name: CBC with Automated Diff EDMS 05/31 12:57 Order name: Lipid Profile EDMS 05/31 12:57 Order name: Lipid Profile EDMS 05/31 12:57 Order name: Magnesium EDMS 05/31 12:57 Order name: Magnesium EDMS 05/31 12:57 Order name: Magnesium EDMS 05/31 12:57 Order name: Magnesium EDDC 05/31 12:57 Order name: Phosphorus EDDC 05/31 12:57 Order name: Phosphorus EDDC 05/31 12:57 Order name: Phosphorus EDDC 05/31 12:57 Order name: Phosphorus EDDC 05/31 11:17 Order name: CT Head Angio; Complete Time: 11:59 gb1 05/31 11:17 Order name: CT Neck Angio; Complete Time: 11:59 gb1 05/31 11:17 Order name: CT Stroke Brain w/o Contrast; Complete Time: 11:59 gb1 05/31 11:17 Order name: Stroke CXR 1 View; Complete Time: 12:21 gb1 05/31 12:57 Order name: Echo with Doppler EDDC 05/31 13:34 Order name: Brain Wo Cont EDDC 05/31 12:57 Order name: CONS Physician Consult EDDC 05/31 12:57 Order name: Physical Therapy Consult [facility] 05/31 12:57 Order name: Speech Therapy Consult [facility] 05/31 11:17 Order name: Accucheck; Complete Time: 11:47 gb1 05/31 11:17 Order name: Cardiac monitoring; Complete Time: 11:47 gb1 05/31 11:17 Order name: EKG - Nurse/Tech; Complete Time: 12:01 gb1 05/31 11:17 Order name: IV Saline Lock; Complete Time: 12:39 gb1 05/31 11:17 Order name: Labs collected and sent; Complete Time: 12:39 gb1 05/31 11:17 Order name: NPO; Complete Time: 11:46 gb1 05/31 11:17 Order name: O2 Per Protocol; Complete Time: 11:46 gb1 05/31 11:17 Order name: O2 Sat Monitoring; Complete Time: 11:46 gb1 05/31 11:17 Order name: Stroke Swallow Screen; Complete Time: 11:46 gb1 Administered Medications: 12:20 Drug: Eliquis PO 5 mg PO Per protocol; 5mg PO BID Route: PO; jb4 13:51 Follow up: Response: No adverse reaction jb4 12:30 Not Given (Hemodynamic Parameters): metoprolol5 mg IVP once; Hold for SBP <100 or HR jb4 <60. 12:30 Drug: hydrALAZINE IVP 10 mg IVP once Route: IVP; Site: right antecubital; jb4 13:51 Follow up: Response: No adverse reaction jb4 13:51 Drug: cloNIDine PO 0.3 mg PO once Route: PO; jb4 Disposition Summary: 05/31/24 12:04 Hospitalization Ordered Notes: Hospitalization Status: Inpatient Admission gb1 Provider: Beto Reyes Location: Telemetry/MedSurg (Inpatient) gb1 Condition: Fair gb1 Problem: new gb1 Symptoms: have worsened gb1 Bed/Room Type: Standard 1 Room Assignment: 219(05/31/24 16:39) Diagnosis - Dysarthria following cerebral infarction gb1 Forms: - Medication Reconciliation Form gb1 - SBAR form gb1 - Leadership Thank You Letter gb1 Critical care time excluding procedures: 12:06 Critical care time: Bedside Care: 75 minutes, Consultation: 45 minutes, Family gb1 Intervention: 25 minutes. Total time: 145 minutes Signatures: Dispatcher [employer] EDMS Aleksandra Weiner RN RN Alejandro Willis RN RN jb4 Xochitl Lemos RN RN ld1 Angeline Edgar MD MD gb1 Corrections: (The following items were deleted from the chart) 11:18 11:18 BASIC METABOLIC PANEL+C.LAB.BRZ ordered. EDMS EDMS 11:18 11:18 CBC+H.LAB.BRZ ordered. EDMS EDMS 11:18 11:18 Troponin High Sensitivity+C.LAB.BRZ ordered. EDMS EDMS 11:18 11:18 MAGNESIUM+C.LAB.BRZ ordered. EDMS EDMS 11:18 11:18 PROTIME (+INR)+COAG.LAB.BRZ ordered. EDMS EDMS 11:18 11:18 PTT, ACTIVATED+COAG.LAB.BRZ ordered. EDMS EDMS 11:18 11:18 Head Angio+CT.RAD.BRZ ordered. EDMS EDMS 11:18 11:18 Neck Angio+CT.RAD.BRZ ordered. EDMS EDMS 11:18 11:18 CT-STROKE BRAIN W/O CONTRAST+CT.RAD.BRZ ordered. EDMS EDMS 11:18 11:18 Chest Single View+RAD.RAD.BRZ ordered. EDMS EDMS 11:19 11:19 MR STROKE PROTOCOL+MRI.RAD.BRZ ordered. EDDC EDMS 16:39 12:04 gb1 hb
--- NOTE | 2024-05-31 12:14 | RAD REPORT ---
EXAM: Chest Single View HISTORY: 63 years Male COUGH COMPARISON: None. FINDINGS: LUNGS/PLEURA: The lungs are clear. No pleural effusions or pneumothorax. No pulmonary edema. CARDIAC/MEDIASTINUM: The cardiac silhouette is within normal limits. UPPER ABDOMEN: No significant abnormality. BONES: No acute abnormality. Thoracic spine fusion hardware. LINES/TUBES/OTHER: N/A IMPRESSION: No evidence of acute cardiopulmonary disease.
[2024-05-31 12:15] LABS: Anion Gap 6.2 mEq/L (5.0-15.0); Magnesium 2.3 mg/dL (1.6-2.4); Potassium 4.2 mEq/L (3.5-5.1); Troponin High Sensitivity 5.2 pg/mL (<58.9)
[2024-05-31] MEDS ORDERED: APIXABAN 5 MG TABLET ONE (12:15)
[2024-05-31] MEDS ORDERED: HYDRALAZINE HCL 20 MG/ML VIAL ONE (12:27)
[2024-05-31] MEDS ORDERED: ACETAMINOPHEN 500 MG TAB PO PRN (12:45)
--- NOTE | 2024-05-31 13:04 | P.HP ---
Certification for Inpatient Patient admitted to: Observation With expected LOS: <2 Midnights Patient will require the following post-hospital care: None Practitioner: I am a practitioner with admitting privileges, knowledge of patient current condition, hospital course, and medical plan of care. Services: Services provided to patient in accordance with Admission requirements found in Title 42 Section 412.3 of the Code of Federal Regulations Patient History Date of Service: 05/31/24 Reason for admission: Acute vs subacute CVA r/o History of Present Illness: Alejandro Newton is a 63 year old male with pmhx Afib and smoking abuse who presents to the ED with left sided weakness and slurred speech that began on Monday (05/29). He reports having a problem lifting his left arm to grab something above him and then called his friend who told him he had slurred speech. He then talked to his mom today who told him to come to the ED. CT head is showing mul tiple previous strokes that he reports not having symptoms and did not know he was having strokes. He has a history of atrial fibrillation and was prescribed multiple medications that were making him sick so he stopped taking all of them reportedly at the direction of a PCP who he no longer sees. Educated that we will start multiple medications this admission and to tell us if he is not feeling well while taking them. Laboratory evaluation unremarkable. CT neck angio reports "No arterial dissection or stenosis identified within the neck. Atherosclerotic changes present bilaterally. Note that the left common carotid artery, right brachiocephalic artery, and aortic arch were not included in the [id number]." CT head angio reports "Heavily calcified bilateral ICAs with likely moderate ri ght and moderate to severe left ICA stenoses. No acute large vessel occlusion. No aneurysm identified." CT brain without contrast reports "Multiple age-indeterminate right cerebral hemisphere infarcts which are in several vascular distributions. No acute intracranial hemorrhage." Alejandro will be admitted to hospitalist service for further evaluation of acute vs subacute CVA, Dr. Umana consulted. Allergies No Known Allergies Allergy (Unverified 05/31/24 18:31) Home Medications: NK [No Home Meds] 05/31/24 - Past Medical/Surgical History -: Afib -: Broken back - Family History Family History: Reviewed- Non-Contributory - Social History Smoking Status: Current every day smoker (1/2 pack cigarettes daily) Alcohol use: No CD- Drugs: No Review of Systems Other: Per HPI Physical Examination - Physical Exam General: Alert, In no apparent distress, Oriented x3 HEENT: Atraumatic, Normocephalic, PERRLA Neck: Supple, 2+ carotid pulse no bruit Respiratory: Clear to auscultation bilaterally Cardiovascular: No edema, Normal S1 S2 Gastrointestinal: Normal bowel sounds, Soft and benign Musculoskeletal: No clubbing Integumentary: No rashes Neurological: Normal speech, Normal tone - Studies Laboratory Data (last 24 hrs) 05/31/24 05/31/24 05/31/24 11:38 11:38 11:38 WBC 12.00 H Hgb 16.8 Hct 46.6 Plt Count 278 PT 11.9 INR 1.05 APTT 39.0 H Sodium 136 Potassium 4.2 BUN 18 Creatinine 0.93 Glucose 102 Magnesium 2.3 Assessment and Plan - Plan Assessment and Plan Acute vs subacute CVA r/o Bilateral Carotid stenosis Right vertebral stenosis - Consulted Neurology - recommendations appreciated - Admit under observation status - No neurologic deficits on my exam - NIHSS = 0 - Allow permissive hypertension for tonight - q4hr neurochecks - Ordered MRI brain - Ordered TTE - PT/OT evaluation requested - Ordered risk profile: Hgb A1c, lipid panel, TSH - Started aspirin, folic acid, atorvastatin, Eliquis -CT head angio reports "Heavily calcified bilateral ICAs with likely moderate right and moderate to severe left ICA stenoses. No acute large vessel occlusion. No aneurysm identified, Vertebrobasilar: High-grade focal stenosis of the right vertebral artery as it pierces the dura." Hypertensive urgency -Restart home medications -Allow permissive hypertension -Close monitoring, treat when SBP is greater than 180 Atrial fibrillation Medication noncompliance - Monitor on continuous telemetry - may require additional medications, patient reports not taking any medications at this time Smoking abuse - 1/2 pack cigarettes daily - Cessation education provided DVT PPx Eliquis Full code LOS 24-hour OBS Discharge Plan: Home Plan to discharge in: 24 Hours - Advance Directives Does patient have a Living Will: No Does patient have a Durable POA for Healthcare: No
[2024-05-31] MEDS ORDERED: cloNIDine HCL 0.1 MG TAB ONE (13:47)
[2024-05-31 18:21] VITALS: O2SAT 95
[2024-05-31 18:40] VITALS: BMI 3905.6
[2024-05-31] MEDS: ATORVASTATIN 20 MG TAB PO SCH (21:01)
[2024-05-31] MEDS: APIXABAN 5 MG TABLET PO SCH (21:02)
[2024-05-31] MEDS: NA CHLORIDE 0.9% 1,000 ML IV SCH (21:04)
[2024-05-31] MEDS: NICOTINE 14 MG/PAT TD SCH (22:17)
[2024-06-01 06:59] LABS: Magnesium 2.3 mg/dL (1.6-2.4); Phosphorus 2.7 mg/dL (2.5-4.9)
[2024-06-01 07:13] LABS: Absolute Basophils 0.2 K/uL (0-0.5); Absolute Eosinophils 0.3 K/uL (0-0.5); Absolute Monocytes 0.8 K/uL (0.1-1.3); Absolute Neutrophil 6.5 K/uL (1.8-8.0); Basophils % 1.6 % (0-1.3); Hematocrit 41.7 % (39.6-49.0); Hemoglobin 14.9 g/dL (13.6-17.9); Lymphocytes % 20.7 % (15.3-44.8); MCH 32.5 pg (27.0-35.0); MCHC 35.7 g/dL (32.0-36.0); MPV 8.8 fL (7.6-11.3); Monocytes % 8.5 % (3.3-12.3); Neutrophils % 66.2 % (41.7-73.7); Nucleated Red Blood Cells % 0.1 % (0-0); Platelets 254 thou/uL (152-406); RBC Red Blood Cell Count 4.59 M/uL (4.33-5.43)
[2024-06-01] MEDS ORDERED: ENOXAPARIN 40 MG/0.4 ML SQ SCH (09:00)
[2024-06-01] MEDS: FOLIC ACID 1 MG TABLET PO SCH (09:16)
[2024-06-01] MEDS: CLOPIDOGREL 75 MG TABLET PO SCH (09:16)
[2024-06-01] MEDS: ASPIRIN EC 81 MG TAB PO SCH (09:16)
--- NOTE | 2024-06-01 12:21 | P.DS ---
Admission Date: 05/31/24 Discharge Date: 06/01/24 Disposition: ROUTINE DISCHARGE Discharge Condition: FAIR Reason for Admission: Acute vs subacute CVA r/o Brief History of Present Illness: Alejandro Newton is a 63 year old male with pmhx Afib and cigarette use presented to the ED with left sided weakness and slurred speech that began on Monday (05/29). He reports having a problem lifting his left arm to grab something above him and then called his friend who told him he had slurred speech. CT head is showing multiple infarcts in different regions of the brain of indeterminate age. He has a history of atrial fibrillation but patient has been noncompliant and has not been taking any medication for years. Stroke protocol initiated in the ED. CT neck angio reports "No arterial dissection or stenosis identified within the neck. Atherosclerotic changes present bilaterally. Note that the left common carotid artery, right brachiocephalic artery, and aortic arch were not included in the [id number]." CT head angio reports "Heavily calcified bilateral ICAs with likely moderate right and moderate to severe left ICA stenoses. No acute large vessel occlusion. No aneurysm identified." CT brain without contrast reports "Multiple age-indeterminate right cerebral hemisphere infarcts which are in several vascular distributions. No acute intracranial hemorrhage." Patient was hospitalized for further management. Hospital Course: Diagnosis Acute vs subacute CVA r/o Bilateral Carotid stenosis Right vertebral stenosis Chronic atrial fibrillation Essential hypertension Tobacco use Patient hospitalized for stroke workup. He was seen and evaluated by physical therapy patient, he ambulated and was determined he does not have any need. His slurred speech resolved. Patient does not have any trouble swallowing and does not need any further therapy needs. Given his history of atrial fibrillation and noncompliance with anticoagulation, patient was started on Eliquis, aspirin and Plavix. Case discussed with neurology Dr. Umana who recommended only Eliquis and aspirin given high risk of bleeding from the cerebral infarct of undetermined age. Echocardiogram and MRI were ordered however patient will not stay any longer for further evaluation. Permissive hypertension was done. Smoking cessation advised. Patient is advised to follow-up with cardiology for echocardiogram. He may also follow-up with cardiology or vascular surgery regarding the left carotid artery disease. He is prescribed Eliquis, aspirin, Lipitor and folic acid. Compliance with medications reemphasized. Vital Signs/Physical Exam: Temp Pulse Resp BP Pulse Ox 97.8 F 63 20 151/68 H 97 06/01/24 08:00 06/01/24 08:00 06/01/24 08:00 06/01/24 08:00 06/01/24 08:00 General: Alert, In no apparent distress HEENT: PERRLA, Mucous membr. moist/pink, EOMI, Sclerae nonicteric Neck: JVD not distended, JVD distended Respiratory: Clear to auscultation bilaterally, Normal air movement Cardiovascular: No edema, Regular rate/rhythm, Normal S1 S2 Gastrointestinal: Normal bowel sounds, Soft and benign, Non-distended, No tenderness Musculoskeletal: No swelling Integumentary: No rashes, No cyanosis Neurological: Normal strength at 5/5 x4 extr, Other (Left facial droop.) Laboratory Data at Discharge: WBC 9.80 thou/uL (4.3-10.9) 06/01/24 06:24 Hgb 14.9 g/dL (13.6-17.9) D 06/01/24 06:24 Hct 41.7 % (39.6-49.0) 06/01/24 06:24 Plt Count 254 thou/uL (152-406) 06/01/24 06:24 PT 11.9 SECONDS (10-13.0) 05/31/24 11:38 INR 1.05 05/31/24 11:38 APTT 39.0 SECONDS (27.2-37.4) H 05/31/24 11:38 Sodium 136 mEq/L (136-145) 06/01/24 06:24 Potassium 4.0 mEq/L (3.5-5.1) 06/01/24 06:24 BUN 20 mg/dL (7-18) H 06/01/24 06:24 Creatinine 0.85 mg/dL (0.70-1.30) 06/01/24 06:24 Glucose 106 mg/dL (74-106) 06/01/24 06:24 Phosphorus 2.7 mg/dL (2.5-4.9) 06/01/24 06:24 Magnesium 2.3 mg/dL (1.6-2.4) 06/01/24 06:24 Triglycerides 108 mg/dL (<150) 06/01/24 06:24 Cholesterol 128 mg/dL (<200) 06/01/24 06:24 HDL Cholesterol 25 mg/dL (40-60) L 06/01/24 06:24 Cholesterol/HDL Ratio 5.12 06/01/24 06:24 Home Medications: Apixaban [Eliquis] 5 mg PO BID #60 tab 06/01/24 Aspirin [Aspirin EC] 81 mg PO DAILY #30 tab 06/01/24 Atorvastatin Calcium [Lipitor] 40 mg PO BEDTIME #30 tab 06/01/24 Folic Acid 1 mg PO DAILY #30 tab 06/01/24 New Medications: Aspirin [Aspirin EC] 81 mg PO DAILY #30 tab Apixaban [Eliquis] 5 mg PO BID #60 tab Folic Acid 1 mg PO DAILY #30 tab Atorvastatin Calcium [Lipitor] 40 mg PO BEDTIME #30 tab Diet: AHA Activity: Fall precautions Followup: García Umana MD [ASSOCIATE-ACTIVE - CAN ADMIT] - 1-2 Weeks NONE,NONE [Primary Care Provider] - 1 Week Epiafnio Sullivan MD [ACTIVE - CAN ADMIT] - 1-2 Weeks Time spent managing pt's care (in minutes): 28
[2024-06-01 13:36] VITALS: BP 182/89; TEMP 97.7
[2024-06-01] MEDS ORDERED: NICOTINE 14 MG/PAT TD SCH (21:54)
== END 2024-06-01 13:21 | disposition home or self-care (01) ==
LOC: ER 10:07 → ERHOLD 12:45 → 2ND 16:47
PROVIDERS: ADMIT Internal Medicine; ATTEND Internal Medicine
DX: I65.23 Occlusion and stenosis of bilateral carotid arteries (principal); I65.01 Occlusion and stenosis of right vertebral artery; R47.81 Slurred speech; R53.1 Weakness; I48.11 Longstanding persistent atrial fibrillation; F17.210 Nicotine dependence, cigarettes, uncomplicated; I16.0 Hypertensive urgency; Z91.148 Patient's other noncompliance with medication regimen for other reason; Z71.6 Tobacco abuse counseling; Z86.73 Personal history of transient ischemic attack (TIA), and cerebral infarction without residual deficits
CPT/HCPCS: 36415; 70450; 70496; 70498; 71045; 80048; 80061; 82565; 83735; 84100; 84484; 85025; 85610; 85730; 92610; 93005; 97112; 97161; G0378; J0360; Q9967